=== PATIENT | male | born 1950 | race Caucasian/White ===

== ENCOUNTER 2019-09-02 07:38 | Outpatient (CLI) | payer MEDICARE, OTHER, SELFPAY ==
--- NOTE | ~2019-09-02 | US_ITS ---
EXAMINATION: US aorta DATE: 09/02/2019 08:57 INDICATION: Abdominal aortic aneurysm. TECHNIQUE: Grayscale, color Doppler, and pulsed Doppler images of the aorta and common iliac arteries were obtained. COMPARISON: Chest CT 03/23/2016, CT abdomen 08/09/2008 FINDINGS: The aorta is normal in caliber and demonstrates atherosclerosis. The right common iliac artery is nor mal in caliber. The left common iliac artery measures 2.1 cm. IMPRESSION: 1. No abdominal aortic aneurysm. Reviewed, dictated and finalized at location A. DIRECTOR
== END 2019-09-02 07:39 | disposition home or self-care (01) ==
PROVIDERS: PCP Family Medicine; Visit Provider Internal Medicine Cardiovascular Disease
DX: I71.4 Abdominal aortic aneurysm, without rupture (principal)
CPT/HCPCS: 36415; 76775; 80061; 84450; 84460

== ENCOUNTER 2019-09-02 09:02 | Outpatient (CLI) | payer MEDICARE, OTHER, SELFPAY ==
[2019-09-02 09:45] LABS: Alanine Aminotransferase 22 U/L (4-50); Aspartate Amino Transferase 26 U/L (17-59); Cholesterol 143 mg/dL (0-200); HDL Direct 36 mg/dL; Triglycerides 150 mg/dL (<150)
[2019-09-02 09:56] LABS: LDL Cholesterol Direct 81 mg/dL
== END 2019-09-02 09:03 | disposition home or self-care (01) ==
LOC: ANHLAB 09:07
PROVIDERS: PCP Family Medicine; Visit Provider Internal Medicine Cardiovascular Disease
DX: E78.5 Hyperlipidemia, unspecified (principal)
CPT/HCPCS: 36415; 80061; 84450; 84460

== ENCOUNTER 2020-05-02 07:44 | Outpatient (CLI) | payer MEDICARE, OTHER, SELFPAY ==
--- NOTE | ~2020-05-02 | CT_ITS ---
EXAMINATION: CT abdomen pelvis w con INDICATION: Prostate cancer TECHNIQUE: Computed tomographic images of the abdomen and pelvis were obtained after the administrati on of 100 cc of Omnipaque 350 intravenous contrast. The dose-length product (DLP) was 693.89 mGy-cm. Automated exposure control and iterative reconstruction technique were employed. COMPARISON: 08/09/2008, 03/28/2017 FINDINGS: Stable 4 mm nodules of the lower lobes are consistent with old granulomatous disease. No ne w pulmonary nodules are identified in the visualized lung bases. Cardiomegaly is noted. The liver, sp libra, pancreas, and adrenal glands are normal. Stones are present in the neck of the nondistended gal lbladder. There is a 3 mm nonobstructing stone of the right kidney lower pole. The left kidney is unr emarkable. A moderate volume of colonic stool is present. No pathologically enlarged abdominal or pel eaw lymph nodes are identified. There is no free intraperitoneal gas or evidence of bowel obstruction . There are three stones in the urinary bladder which measure 8 mm, 6 mm, and 7 mm. A 2 mm stone is s een near the left ureterovesicular junction without resulting hydronephrosis, likely within the bladd er wall. There is circumferential thickening of the bladder wall. The prostate is enlarged. There is moderate lumbar spondylosis. IMPRESSION: 1. No evidence of metastatic disease. 2. Stones in the urinary bladder as well as nonobstructing right nephrolithiasis. 3. Stones in the gallbladder neck without evidence of cholecystitis. Reviewed, dictated and finalized at location A. IMPRESSION: 1. No evidence of metastatic disease. 2. Stones in the urinary bladder as well as nonobstructing right nephrolithiasi s. 3. Stones in the gallbladder neck without evidence of cholecystitis.
--- NOTE | ~2020-05-02 | NM_ITS ---
EXAMINATION: NM bone scan whole body EXAM DATE: 05/02/2020 11:14 INDICATION: Prostate cancer. TECHNIQUE: Bone scan was performed after injection of 24.5 mCi technetium 99 HDP and planar whole bod y images were obtained. COMPARISON: Correlation made to CT abdomen pelvis 05/02/2020 FINDINGS: There is mild lumbar dextroscoliosis. Some regions of uptake in the shoulders, clavicular manubrial joints consistent with primary osteoarthritis. There are no focal regions of increased upta ke or photopenic regions suspicious for osseous metastatic disease. Physiologic, expected amount of r enal excretion. Bladder activity has been subtracted. IMPRESSION: No evidence of osseous metastatic disease. Reviewed, dictated and finalized at location B.
[2020-05-02 08:21] LABS: Estimated Glomerular Filt Rate > 60
== END 2020-05-02 07:45 | disposition home or self-care (01) ==
LOC: ANHIMG 07:51
PROVIDERS: PCP Family Medicine; Visit Provider Urology
DX: C61 Malignant neoplasm of prostate (principal)
CPT/HCPCS: 74177; 78306; A9561; Q9967

== ENCOUNTER 2020-06-02 14:28 | Outpatient (CLI) | payer MEDICARE, OTHER, SELFPAY ==
[2020-06-02 15:27] LABS: Basophils Percent Auto 0.6 % (0.2-1.2); Eosinophils Absolute Auto 0.2 K/mm3 (0-0.3); Eosinophils Percent Auto 3.1 % (0-4.4); Hemoglobin 13.7 g/dL (14.0-18.0); Immature Granulocyte Absolute 0.01 K/mm3 (0.00-0.031); Immature Granulocyte Percent A 0.1 % (0-0.5); Lymphocytes Absolute Auto 2.58 K/mm3 (0.9-3.2); Lymphocytes Percent Auto 35.9 % (18.3-44.2); Mean Corpuscular HGB Conc 31.1 g/dl (32-36); Mean Corpuscular Hemoglobin 26.3 pg (26-34); Mean Corpuscular Volume 84.5 fl (80-100); Mean Platelet Volume 10.4 fl (7.4-10.4); Monocytes Absolute Auto 0.6 K/mm3 (0.1-0.6); Monocytes Percent Auto 8.9 % (2.6-8.5); Neutrophils Absolute Auto 3.7 K/mm3 (1.3-6.7); Neutrophils Percent Auto 51.4 % (45.5-73.1); Platelet Count Result 287 k/mm3 (150-375); Red Blood Count 5.21 M/mm3 (4.6-6.20); Red Cell Distribution Width 15.2 % (11.5-14.5); White Blood Count 7.2 K/mm3 (4.5-10.0)
[2020-06-02 15:38] LABS: Alanine Aminotransferase 12 U/L (4-50); Albumin Level 4.2 g/dL (3.5-5.1); Alkaline Phosphatase 75 U/L (38-126); Anion Gap 7 mmol/L (8-16); Aspartate Amino Transferase 23 U/L (17-59); Bilirubin,Total 0.4 mg/dL (0.2-1.3); Blood Urea Nitrogen 18 mg/dL (9-20); Calcium 9.7 mg/dL (8.4-10.2); Carbon Dioxide 34 mmol/L (22-30); Chloride 101 mmol/L (98-107); Estimated Glomerular Filt Rate > 60; Glucose 85 mg/dL (75-110); Sodium 142 mmol/L (137-145)
[2020-06-02 15:40] LABS: Partial Thromboplastin Time 37.6 SECONDS (22.3-36.8); Prothrombin Time 13.7 Seconds (11.1-14.7)
== END 2020-06-02 14:29 | disposition home or self-care (01) ==
LOC: ANHSURGERY 14:32
PROVIDERS: PCP Family Medicine; Visit Provider Urology
DX: Z01.818 Encounter for other preprocedural examination (principal); N21.0 Calculus in bladder
CPT/HCPCS: 36415; 80053; 85025; 85610; 85730; 86850; 86900; 86901; 87086

== ENCOUNTER 2020-06-03 01:20 | Outpatient (CLI) | payer MEDICARE, OTHER, SELFPAY ==
[2020-06-03 18:04] LABS: SARS-CoV-2 RNA PCR Negative
== END 2020-06-03 01:21 | disposition home or self-care (01) ==
LOC: ANHCOVIDDT 01:21
PROVIDERS: PCP Family Medicine; Visit Provider Urology
DX: Z01.812 Encounter for preprocedural laboratory examination (principal); Z11.59 Encounter for screening for other viral diseases
CPT/HCPCS: 87635; C9803; U0003

== ENCOUNTER 2020-06-06 01:53 | Day surgery (SDC) | payer MEDICARE, OTHER, SELFPAY ==
[2020-06-02 13:07] VITALS: BMI 25.7
[2020-06-06] VITALS (8 sets, daily range): BP systolic 131–159; BP diastolic 61–88; PULSE 52–64; RESP 10–20; TEMP 36.2–36.6; O2SAT 94–100
--- NOTE | 2020-06-06 10:25 | WPDHPUPDATE1 ---
History and Physical Update Update Date/Time: 06/06/20 10:25 History and Physical has been reviewed, including an updated exam of the patient. There are NO changes in the patient's condition. Risks, benefits, and alternatives have been discussed and questions answered. Patient agrees to proceed with procedure.
[2020-06-06] MEDS: LACTATED RINGERS 1,000 ML 30 ML IV CONT (11:33)
--- NOTE | 2020-06-06 11:48 | WPDANESEPP ---
Anes - Eval Pre Procedure Procedure: Operation Date: 06/06/20 14:00 Proposed Procedures p Cystoscopy, Bladder Stone Extraction - Ramone Doss MD s Possible Holmium Laser Procedure - Ramone Doss MD Date/Time: 06/06/20 11:48 Pre Op Diagnosis: Bladder Stones Patient Data Age: 69 Gender: M Height: 1.88 m Weight: 90.9 kg Allergies Allergy/AdvReac Type Severity Reaction Status Date / Time No Known Allergies Allergy Unverified 06/02/20 13:05 Home Medications Medication Instructions Recorded Confirmed Type aspirin 81 mg PO DAILY 06/02/20 06/02/20 History metoprolol tartrate 12.5 mg BID 06/02/20 06/02/20 History rosuvastatin [Crestor] 40 mg QAM 06/02/20 06/02/20 History Patient hx anesthesia problems: none Family hx anesthesia problems: none PMFSH Past Medical History Medical History AAA (abdominal aortic aneurysm) Aortic valve insufficiency Arthritis CAD (coronary artery disease) Diabetes H/O ETOH abuse HLD (hyperlipidemia) HTN (hypertension) Myocardial infarct DINA (obstructive sleep apnea) Surgical History Surgical History Hx of CABG Family History Family History Mother Cerebrovascular accident Father Family history of lung cancer Sibling Acute myocardial infarction Other Family history of cardiovascular disease Hypertension Social History Social History Smoking status: Never smoker Alcohol intake: former Alcohol use details: PT STATES STOPPED DRINKING 30+YRS AGO Substance use: never Living arrangements: with family Spiritual care concerns: No Exam Day of Procedure 06/06/20 11:48 Patient weight: overweight Heart: regular rate and rhythm Lungs: normal air movement Airway: Mallampati scale class 1 Neurological: alert and oriented
--- NOTE | 2020-06-06 11:51 | P.PNAN_ITS ---
Anes - Eval Final PreProcedure Day of Procedure 06/06/20 11:51 Patient weight: normal Heart: regular rate and rhythm Lungs: clear to auscultation Airway: Mallampati scale class 1 Neurological: alert and oriented Last oral intake: >/= 8 hours ASA classification: III Emergent: no Anesthetic plan: proceed Anesthesia type and monitoring: general LMA and standard monitoring Informed Consent: The patient's anesthetic plan and its attendant risks and be nefits were discussed with the patient/family/POA. Questions were solicited and answers provided to the satisfaction of the patient/family/POA.
[2020-06-06] MEDS: ceFAZolin 2 GM/D5W 50 ML 2 GM/50 ML BAG IVPB (12:50)
[2020-06-06] MEDS: LIDOCAINE HCL 2% GEL UROJET 10 ML PKG MUCOUS MEM (13:18)
--- NOTE | 2020-06-06 13:19 | P.OP_ITS ---
Procedure Note - Detailed Date of procedure: 06/06/20 Pre-op diagnosis: Bladder Stones Post-op diagnosis: same Procedure performed: Cysto with bladder stone extraction, fulguration of bladder neck. Description of procedure: Patient is taken the operative suite and correctly identified. Once anesthesia was obtained he was placed in the dorsal lithotomy position and prepped and draped in usual sterile fashion. Twenty-two Mongolian scope inserted the bladder. He has an enlarged prostate with an elevated median bar and a small median lobe. He had some mild bulbar urethral narrowing. Upon entering the bladder there is 2+ trabeculation noted. He has 2-3 stones present. We used this cold cup biopsy forceps to remove the edges of the jackstone. We then retrieve them. Patient did have a slight oozing from the prostatic fossa and we fulgurated this using a bag be. 2% viscous lidocaine was inserted urethra and a 16 Mongolian coude was placed. A be discharged home with Ann can have that removed in the next couple of days if his urine is clear. Anesthesia: GLMA Surgeon: Ramone Doss MD Drains: Yes Packing: No Pathology: yes Complications: No immediate complications Condition: stable Disposition: PACU
[2020-06-06] MEDS: oxyCODONE HCL (*CRX) 5 MG TAB IR PO (14:39)
== END 2020-06-06 15:15 | disposition home or self-care (01) ==
PROVIDERS: PCP Family Medicine; Visit Provider Urology
PROC: 0TCB8ZZ Extirpation of Matter from Bladder, Via Natural or Artificial Opening Endoscopic (ICD-10-PCS; CPT 52352; principal; 2020-06-06 14:00)
DX: N21.0 Calculus in bladder (principal); N32.89 Other specified disorders of bladder; C61 Malignant neoplasm of prostate; I25.10 Atherosclerotic heart disease of native coronary artery without angina pectoris; Z95.1 Presence of aortocoronary bypass graft; I10 Essential (primary) hypertension; E78.5 Hyperlipidemia, unspecified; E11.9 Type 2 diabetes mellitus without complications; I25.2 Old myocardial infarction; G47.33 Obstructive sleep apnea (adult) (pediatric); I35.1 Nonrheumatic aortic (valve) insufficiency; I71.4 Abdominal aortic aneurysm, without rupture
CPT/HCPCS: 52310; 82365; 88300; A9270; J0690; J1100; J2405; J2704; J3010; J7120

== ENCOUNTER 2020-06-08 21:44 | Emergency (ER) | payer MEDICARE, OTHER, SELFPAY ==
--- NOTE | ~2020-06-08 | CT_ITS ---
EXAMINATION: CT abdomen pelvis wo con DATE: 06/08/2020 23:31 INDICATION: Lower abdominal pain, flank pain. History of gout TECHNIQUE: Computed tomography (CT) of the abdomen and pelvis was performed without intravenous contr ast. Automated exposure control and iterative reconstruction technique were employed. Exam dose: 840 .36 mGy-cm total exam DLP. COMPARISON: 05/02/[address] abdomen pelvis 04/13/2017 CT Chest FINDINGS: Mild discoid atelectasis or scarring in the lower lobes. Probable small benign minor fissure nodes. Stable 4 mm left lower lobe pulmonary nodule. Stable 4 mm right lower lobe pulmonary nodule. Status post sternotomy/coronary artery bypass graft surgery. Mild cardiomegaly. No pericardial or pleural effusion. There are numerous small dependent gallstones. No gallbladder wall thickening or pericholecystic flu id or fat stranding. No bile duct or pancreatic duct dilatation. No hepatic, splenic, pancreatic, and adrenal or renal space-occupying mass lesion is evident on this limited noncontrast examination. 3 mm lower pole nonobstructing right renal calculus. 3 mm lower pole nonobstructing left renal calculus. There is mild bilateral nonspecific hydroureteronephrosis. There are several very small dependent urinary bladder stones. There is prostate enlargement. There are occasional prostate calcifications. There is atherosclerotic calcification of the abdominal aorta and iliac arteries. No abdominal aortic aneurysm. There are occasional diverticula of the left colon; no CT evidence of diverticulitis. Normal appendix . No bowel obstruction, bowel wall thickening, pneumatosis or intraperitoneal free air. Degenerative changes of the thoracic and lumbar spine including severe degenerative disc disease part icularly at L5-S1. Diffuse osteopenia. IMPRESSION: Mild bilateral nephrolithiasis Urinary bladder stones Cholelithiasis Mild colonic diverticulosis Prostate enlargement, calcification 4 mm nodules in both lower lobes Mild discoid atelectasis or scarring in the lower lobes Reviewed, dictated and finalized at Location A. Reviewed, dictated and finalized at location A. LAINT INVESTIGATOR
[2020-06-08 21:49] VITALS: BP 226/110; PULSE 96; RESP 16; TEMP 37.1; O2SAT 99
--- NOTE | 2020-06-08 22:11 | ED.MALEGU ---
HPI - Male Genitourinary General Chief complaint: Abdominal Pain Stated complaint: abd pain Time Seen by Provider: 06/08/20 21:56 Source: patient Mode of arrival: ambulatory Limitations: no limitations History of Present Illness HPI Narrative: Patient is a 69-year-old male complaining of abdominal pain described as aching, cramping accompanied by increased urinary frequency. Patient states that he recently had a prostate procedure done today and and his Ann removed. Patient states that he is able to urinate but increasing frequency every 10 minutes . He denies any blood in his urine. He denies any nausea vomiting diarrhea or fever. Related Data Home Medications Medication Instructions Recorded Confirmed metoprolol tartrate 12.5 mg BID 06/02/20 06/06/20 rosuvastatin [Crestor] 40 mg QAM 06/02/20 06/06/20 Allergies Allergy/AdvReac Type Severity Reaction Status Date / Time No Known Allergies Allergy Unverified 06/06/20 12:03 Review of Systems Review of Systems: All systems reviewed & are unremarkable except as noted in HPI and below Constitutional: Constitutional: Denies body ache(s), Denies chills, Denies excessive sweating, Denies fatigue, Denies fever(s), Denies headache(s), Denies lethargy, Denies malaise, Denies weakness and Denies weight loss Eyes: Eyes: Denies blurry vision, Denies change in vision and Denies loss of vision ENT: Denies dizziness, Denies ear discharge, Denies headache(s), Denies lip swelling, Denies epistaxis, Denies nasal congestion, Denies neck pain, Denies throat swelling and Denies tongue swelling Cardiovascular: Cardiovascular: Denies chest pain, Denies chest pain at rest, Denies chest pain with activity, Denies diaphoresis, Denies rapid heart rate, Denies edema, Denies irregular heart rhythm, Denies lightheadedness, Denies palpitations, Denies dyspnea and Denies dyspnea on exertion Respiratory: Respiratory: Denies chest congestion, Denies cough, Denies hemoptysis, Denies dyspnea and Denies dyspnea on exertion Gastrointestinal: Gastrointestinal: Denies abdominal pain, Denies melena, Denies hematochezia, Denies diarrhea, Denies nausea, Denies vomiting and Denies hematemesis Musculoskeletal: Musculoskeletal: Denies abnormal gait, Denies deformity, Denies joint swelling, Denies limited range of motion, Denies neck pain and Denies numbness Neurologic: Denies Abnormal speech present, Denies abnormal gait, Denies confusion, Denies dizziness, Denies headache(s), Denies focal weakness, Denies loss of vision, Denies numbness, Denies Other visual disturbances, Denies Sensory deficit (Neuro) and Denies weakness Psychiatric: Psychiatric: Denies confusion, Denies depression, Denies auditory hallucinations, Denies homicidal ideation and Denies suicidal ideation Endocrine: Endocrine: Denies cold intolerance, Denies excessive sweating, Denies fatigue, Denies heat intolerance and Denies palpitations Hematologic/Lymphatic: Hematologic/Lymphatic: Denies easy bleeding and Denies easy bruising Allergic/Immunologic: Allergic/Immunologic: Denies lip swelling, Denies throat swelling and Denies tongue swelling PMFSH Past Medical History Medical History AAA (abdominal aortic aneurysm) Aortic valve insufficiency Arthritis CAD (coronary artery disease) Diabetes H/O ETOH abuse HLD (hyperlipidemia) HTN (hypertension) Myocardial infarct DINA (obstructive sleep apnea) Surgical History Surgical History Hx of CABG Family History Family History Mother Cerebrovascular accident Father Family history of lung cancer Sibling Acute myocardial infarction Other Family history of cardiovascular disease Hypertension Social History Social History Smoking status: Never smoker Alcohol intake: for
[2020-06-08 22:24] LABS: Basophils Absolute Auto 0.1 K/mm3 (0.0-0.1); Basophils Percent Auto 0.6 % (0.2-1.2); Eosinophils Absolute Auto 0.3 K/mm3 (0-0.3); Eosinophils Percent Auto 2.5 % (0-4.4); Hematocrit 46.1 % (42.0-52.0); Hemoglobin 14.8 g/dL (14.0-18.0); Immature Granulocyte Absolute 0.02 K/mm3 (0.00-0.031); Immature Granulocyte Percent A 0.2 % (0-0.5); Lymphocytes Absolute Auto 2.55 K/mm3 (0.9-3.2); Lymphocytes Percent Auto 22.2 % (18.3-44.2); Mean Corpuscular HGB Conc 32.1 g/dl (32-36); Mean Corpuscular Hemoglobin 27.3 pg (26-34); Mean Corpuscular Volume 85.1 fl (80-100); Mean Platelet Volume 10.4 fl (7.4-10.4); Monocytes Absolute Auto 0.8 K/mm3 (0.1-0.6); Neutrophils Absolute Auto 7.8 K/mm3 (1.3-6.7); Neutrophils Percent Auto 67.5 % (45.5-73.1); Platelet Count Result 302 k/mm3 (150-375); Red Blood Count 5.42 M/mm3 (4.6-6.20); Red Cell Distribution Width 15.3 % (11.5-14.5); White Blood Count 11.5 K/mm3 (4.5-10.0)
[2020-06-08 22:34] LABS: Prothrombin Time 13.4 Seconds (11.1-14.7)
[2020-06-08 22:35] LABS: Partial Thromboplastin Time 34.3 SECONDS (22.3-36.8)
[2020-06-08 22:36] LABS: Lactic Acid Reflex 1.7 mmol/L (0.7-2.1)
[2020-06-08 22:37] LABS: Alanine Aminotransferase 13 U/L (4-50); Albumin Level 4.4 g/dL (3.5-5.1); Alkaline Phosphatase 87 U/L (38-126); Anion Gap 7 mmol/L (8-16); Aspartate Amino Transferase 26 U/L (17-59); Bilirubin,Total 0.4 mg/dL (0.2-1.3); Blood Urea Nitrogen 21 mg/dL (9-20); Calcium 10.1 mg/dL (8.4-10.2); Carbon Dioxide 30 mmol/L (22-30); Chloride 103 mmol/L (98-107); Estimated CRCL calculation 78 ml/min; Estimated Glomerular Filt Rate > 60; Glucose 130 mg/dL (75-110); Potassium 4.2 mmol/L (3.4-5.0); Sodium 140 mmol/L (137-145)
[2020-06-08] MEDS: SODIUM CHLORIDE 0.9% IV 1,000 ML 999 ML IV CONT (22:54)
[2020-06-08] MEDS: ONDANSETRON INJ 4 MG/2 ML VIAL IV PUSH (23:36)
[2020-06-08] MEDS: HYDROmorphone HCL INJ (*CRX) 1 MG/ML SYR 0.5 MG IV PUSH (23:37)
[2020-06-09 01:23] LABS: Add Urine Microscopic? YES; Appearance Urine Cloudy (Clear); Bilirubin Urine Negative (Negative); Blood Urine 3+ (Negative); Color Urine Yellow (Yellow); Glucose Urine UA Negative (Negative); Ketones Urine Negative (Negative); Leukocyte Esterase Ur Trace LEU/UL (Negative); Mucus Urine Rare /lpf; Nitrate Urine Negative (Negative); Protein Urine 1+ mg/dL (Negative); RBC Urine >75 /hpf (0-2); Specific Grav Ur 1.013 (1.001-1.035); Urobilinogen Urine Negative mg/dL (<2.0)
[2020-06-09 03:06] VITALS: BP 184/94; PULSE 81; RESP 18; O2SAT 98
== END 2020-06-09 03:09 | disposition home or self-care (01) ==
PROVIDERS: Emergency Provider Emergency Medicine; PCP Family Medicine
DX: N30.01 Acute cystitis with hematuria (principal); N20.0 Calculus of kidney; R33.8 Other retention of urine; M19.90 Unspecified osteoarthritis, unspecified site; I35.1 Nonrheumatic aortic (valve) insufficiency; I25.10 Atherosclerotic heart disease of native coronary artery without angina pectoris; E11.9 Type 2 diabetes mellitus without complications; E78.5 Hyperlipidemia, unspecified; I10 Essential (primary) hypertension; I25.2 Old myocardial infarction; G47.33 Obstructive sleep apnea (adult) (pediatric); Z95.1 Presence of aortocoronary bypass graft; K80.20 Calculus of gallbladder without cholecystitis without obstruction; K57.90 Diverticulosis of intestine, part unspecified, without perforation or abscess without bleeding; R91.8 Other nonspecific abnormal finding of lung field; N40.1 Benign prostatic hyperplasia with lower urinary tract symptoms
CPT/HCPCS: 36415; 51702; 74176; 80053; 81001; 83605; 85025; 85610; 85730; 87086; 96361; 96365; 96375; 99284; J0696; J1170; J2405; J7030

== ENCOUNTER 2020-06-12 02:31 | Outpatient (CLI) | payer MEDICARE, OTHER, SELFPAY ==
[2020-06-12 21:22] LABS: SARS-CoV-2 RNA PCR Negative
== END 2020-06-12 02:32 | disposition home or self-care (01) ==
LOC: ANHCOVIDDT 02:32
PROVIDERS: PCP Family Medicine; Visit Provider Urology
DX: Z01.812 Encounter for preprocedural laboratory examination (principal); Z20.828 Contact with and (suspected) exposure to other viral communicable diseases
CPT/HCPCS: 87635; C9803; U0003

== ENCOUNTER 2020-06-15 01:37 | Day surgery (SDC) | payer MEDICARE, OTHER, SELFPAY ==
[2020-06-02 13:59] VITALS: BMI 25.7
--- NOTE | 2020-06-14 14:15 | WPDANESEPPF ---
Anes - Initial Pre Proc Eval Procedure: Operation Date: 06/15/20 07:30 Proposed Procedures p Robotic Assisted Nerve Sparing Prostatectomy, Possible Pelvic Lymph Node Dissection - Ramone Doss MD Date/Time: 06/14/20 14:15 Surgeon: Ramone Doss MD Pre Op Diagnosis: Prostate Ca Patient Data Age: 69 Gender: M Height: 1.88 m Weight: 90.9 kg Allergies Allergy/AdvReac Type Severity Reaction Status Date / Time No Known Allergies Allergy Verified 06/15/20 06:16 Home Medications Medication Instructions Recorded Confirmed Type metoprolol tartrate 12.5 mg BID 06/02/20 06/15/20 History rosuvastatin [Crestor] 40 mg QAM 06/02/20 06/15/20 History Patient hx anesthesia problems: none Family hx anesthesia problems: none PMFSH Past Medical History Medical History (Updated 06/15/20 @ 06:55 by Gustabo Fonseca DO) Aortic valve insufficiency mild Arthritis CAD (coronary artery disease) H/O ETOH abuse 30 years ago HLD (hyperlipidemia) HTN (hypertension) Myocardial infarct DINA (obstructive sleep apnea) possible - not officially diagnosed Surgical History Surgical History (Updated 06/15/20 @ 06:51 by Gustabo Fonseca DO) Hx of CABG 2018 x 3 Family History Family History Mother Cerebrovascular accident Father Family history of lung cancer Sibling Acute myocardial infarction Other Family history of cardiovascular disease Hypertension Social History Social History Smoking status: Never smoker Alcohol intake: former Alcohol use details: STATES STOPPED DRINKING 30+ YRS AGO Substance use: never Living arrangements: with family Spiritual care concerns: No Anes - Eval Final PreProcedure Day of Procedure 06/14/20 14:15 Patient weight: overweight Heart: regular rate and rhythm Lungs: clear to auscultation and normal air movement Airway: Mallampati scale class 1 Neurological: alert and oriented Last oral intake: >/= 8 hours ASA classification: III Emergent: no Anesthetic plan: proceed Anesthesia type and monitoring: general ETT and standard monitoring Informed Consent: The patient's anesthetic plan and its attendant risks and benefits were discussed with the patient/family/POA. Questions were solicited and answers provided to the satisfaction of the patient/family/POA.
[2020-06-15] VITALS (12 sets, daily range): BP systolic 130–161; BP diastolic 63–78; PULSE 68–85; RESP 8–21; TEMP 35.7–36.5; O2SAT 92–100; BMI 26.2
[2020-06-15] MEDS: LACTATED RINGERS 1,000 ML 30 ML IV CONT ×2 (06:31→13:55)
--- NOTE | 2020-06-15 06:53 | PM.IMHP ---
H&P: HPI History of Present Illness Date/Time: 06/15/20 06:53 Chief complaint: Prostate Ca Narrative: Ryan Hamm is a 69 year old male with adenocarcinoma of prostate. Presents for robotic assist nerve sparing prostatectomy with possible plnd Review of Systems Review of Systems: All systems reviewed & are unremarkable except as noted in HPI and below PMFSH Past Medical History Medical History AAA (abdominal aortic aneurysm) not seen on 08/2019 ultrasound Aortic valve insufficiency mild Arthritis CAD (coronary artery disease) Diabetes H/O ETOH abuse HLD (hyperlipidemia) HTN (hypertension) Myocardial infarct DINA (obstructive sleep apnea) Surgical History Surgical History Hx of CABG 2018 x 3 Family History Family History Mother Cerebrovascular accident Father Family history of lung cancer Sibling Acute myocardial infarction Other Family history of cardiovascular disease Hypertension Social History Social History Smoking status: Never smoker Alcohol intake: former Alcohol use details: STATES STOPPED DRINKING 30+ YRS AGO Substance use: never Living arrangements: with family Spiritual care concerns: No Meds Home Medications and Allergies Home Medications Medication Instructions Recorded Confirmed Type metoprolol tartrate 12.5 mg BID 06/02/20 06/15/20 History rosuvastatin [Crestor] 40 mg QAM 06/02/20 06/15/20 History Allergies Allergy/AdvReac Type Severity Reaction Status Date / Time No Known Allergies Allergy Verified 06/15/20 06:16 Exam Const: General: cooperative, comfortable and no acute distress HENMT: Head: normal to inspection Ears: hearing grossly normal bilaterally Eyes: General: appearance normal, both eyes and all related structures Neck: Neck: normal visual inspection Chest: Chest palpation & inspection: normal inspection of the chest Resp: Effort & Inspection: normal respiratory effort GI: Inspection: normal to inspection and non-distended Back/Spine/Pelvis: Back: no CVA tenderness Skin: General skin exam: normal color Neuro: General: oriented to person, oriented to place, oriented to time and patient oriented x3 Extrem: General: normal to inspection Psych: Appearance: grossly normal Assessment and Plan Assessment and plan (1) Adenocarcinoma of prostate: Code(s): C61 - Malignant neoplasm of prostate Status: Acute Additional Plan robotic assist nerve sparing prostatectomy with possible bilateral plnd
--- NOTE | 2020-06-15 07:30 | WPDHPUPDATE1 ---
History and Physical Update Update Date/Time: 06/15/20 07:30 History and Physical has been reviewed, including an updated exam of the patient. There are NO changes in the patient's condition. Risks, benefits, and alternatives have been discussed and questions answered. Patient agrees to proceed with procedure.
[2020-06-15] MEDS: ceFAZolin 2 GM/D5W 50 ML 2 GM/50 ML BAG IVPB (07:48)
[2020-06-15] MEDS: BUPIVACAINE HCL 0.5% PF 30 ML VIAL INFILTRATE (09:02)
[2020-06-15] MEDS: ceFAZolin SODIUM 1 GM VIAL IV PUSH (12:00)
--- NOTE | 2020-06-15 13:40 | PM.PROC ---
Procedure Note - Detailed Date of procedure: 06/15/20 Pre-op diagnosis: Prostate Ca Post-op diagnosis: same Procedure performed: Robotic assisted nerve-sparing prostatectomy with right pelvic lymph node dissection Description of procedure: Patient is taken to the operative suite and correctly identified. Once anesthesia was obtained was placed in low lying dorsal lithotomy position and prepped and draped in usual sterile fashion. Supraumbilical incision was then made and carried down to the rectus fascia. Veress needle was inserted in the abdomen was insufflated to 15 mmHg pressure. An 18 Stateless Ann had been placed with 20 cc in the balloon. Working ports were then placed by 1st placing the camera port under direct vision. The other working ports were then placed. The patient was placed in steep Trendelenburg position and the robot was docked. It was noted that he had quite a bit of adhesions from prior hernia repairs. We went ahead and dissected off the adhesions from the left bowel to the hernia repair on the left. We then went ahead and did a posterior approach. The seminal vesicles were somewhat scarred in and hard in nature. The vas is were transected. We were able to develop a plane between the prostate and the rectum. We then took down the bladder in the standard fashion. Again he had prior hernia surgeries which did have some adhesions of the bladder to the sidewall. Endopelvic fascia was incised and extended proximally distally. Puboprostatic ligaments were taken down. Dorsal venous complex was isolated using 0 Vicryl secured. Patient has an extremely large prostate. We open the anterior neck. It was noted the patient had actually 2 lobes protruding into the bladder. In order to excise this in its entirety the bladder neck was somewhat larger than we had hoped for. The posterior bladder neck was transected. We were able to find the space where the seminal vesicles were dissected out. Pedicles were taken using clips. Nerves were lifted off the prostate. Dorsal venous complex was transected as was the urethra. Prostate was placed in an Endo-Catch bag. Was extremely large and could barely fit in it. We then did a right pelvic lymph node dissection with the borders being the external iliac vein groups ligament, obturator nerve, and bifurcation of vessels. Clips were placed proximally and distally on the lymph node packet. We then did a bladder neck reconstruction by placing 2 0 Vicryl laterally. We then anastomosed the bladder neck to the urethra using V lock suture in a running anastomosis. There was good approximation mucosa. Eighteen Stateless Ann was placed inflated with 10 cc sterile water. The bladder was filled with 200 cc of normal saline. There is no evidence of extravasation. A lap count needle counts and sponge counts were correct. We then undocked the robot. A Ezio drain had been placed through the 3rd working arm port site. This was secured using nylon. Midline incision was extended. The bag was brought out through this incision. We then closed using 0 Vicryl in a running fashion. Subcuticular stitches were then placed. We anesthetized the port sites using 1% lidocaine. Patient tolerated procedure well without complications taken recovery room stable condition. Anesthesia: GETA Surgeon: Ramone Doss MD Estimated blood loss (mL): 100 Drains: Yes Packing: No Pathology: yes Complications: No immediate complications Condition: stable Disposition: PACU
--- NOTE | 2020-06-15 15:35 | PC.NURSE ---
This patient, Ryan Hamm, was admitted to 2 Medical Room 260-. Patient/family oriented to hospital policies and general routines including ID bracelet, bed and alarms, visiting hours, pain management, procedures, bathroom and other care routines, personal items, smoking policy, room service/diet, and visiting hours. Information on how to activate the Rapid Response Team has been discussed. Patient/Family are encouraged to report perceived risks to care and to ask questions if they do not understand what they are told or what they should do.
[2020-06-15] MEDS: LACTATED RINGERS 1,000 ML 125 ML IV CONT (15:51)
[2020-06-15] MEDS: HYDROcodone/acetaminophen (*CRX) 5-325 MG TABLET 1 TAB PO (19:38)
[2020-06-16] VITALS: BP 127/67; PULSE 83; RESP 18; TEMP 36.2; O2SAT 96
[2020-06-16] MEDS: LACTATED RINGERS 1,000 ML 125 ML IV CONT ×2 (00:46→08:24)
[2020-06-16] MEDS: HYDROcodone/acetaminophen (*CRX) 5-325 MG TABLET 1 TAB PO (02:08)
[2020-06-16] MEDS: HYOSCYAMINE SULFATE 0.125 MG TABLET SUBLINGUAL (02:08)
[2020-06-16 05:03] VITALS: BP 125/72; PULSE 84; RESP 20; TEMP 36.3; O2SAT 98
[2020-06-16 05:26] LABS: Hematocrit 37.1 % (42.0-52.0); Hemoglobin 12.1 g/dL (14.0-18.0)
[2020-06-16 05:41] LABS: Anion Gap 3 mmol/L (8-16); Blood Urea Nitrogen 16 mg/dL (9-20); Carbon Dioxide 33 mmol/L (22-30); Chloride 98 mmol/L (98-107); Estimated CRCL calculation 71 ml/min; Estimated Glomerular Filt Rate > 60; Glucose 110 mg/dL (75-110); Potassium 4.5 mmol/L (3.4-5.0); Sodium 134 mmol/L (137-145)
--- NOTE | 2020-06-16 07:42 | WPDUROPN2 ---
Progress Note: A&P Assessment and Plan (1) Adenocarcinoma of prostate: Code(s): C61 - Malignant neoplasm of prostate Status: Acute Additional Plan Increase activity this morning. Will monitor MAY output this morning and if minimal will removed prior to discharge. Possible discharge later today with catheter cystogram in a week's time. Subjective Subjective Date/Time Seen: 06/16/20 07:42 Post Op day: 1 (Robotic assisted nerve-sparing prostatectomy with right pelvic lymph node dissection, adhesiolysis adhesions) Principal diagnosis: Adenocarcinoma prostate Interval history: Doing well overall postoperative day 1. Sitting up in a chair comfortably at this time. Had some typical discomfort last night. Ann is draining clear urine this time. Review of Systems Review of Systems: All systems reviewed & are unremarkable except as noted in HPI and below Exam Const: General: cooperative, comfortable and no acute distress Resp: Effort & Inspection: normal respiratory effort Cardio: Rate: regular rate GI: GI Palp: Yes Soft to palpation Urinary Catheter: Urinary Catheter: patent and draining and urine clear Objective Data Vital Signs Vital Signs: Vital Signs - 24 hr 06/15/20 13:55 06/15/20 14:10 06/15/20 14:25 Temperature 36.4 C Pulse Rate 83 85 71 Respiratory Rate 8 L 15 15 Blood Pressure 131/63 139/74 155/71 H Pulse Oximetry 98 94 100 06/15/20 14:40 06/15/20 14:55 06/15/20 15:10 Temperature Pulse Rate 79 77 68 Respiratory Rate 18 21 H 16 Blood Pressure 161/78 H 148/76 H 152/70 H Pulse Oximetry 100 92 92 06/15/20 15:35 06/15/20 15:50 06/15/20 16:20 Temperature 35.8 C L 35.7 C L 35.8 C L Pulse Rate 72 71 70 Respiratory Rate 14 16 16 Blood Pressure 140/66 140/66 145/71 H Pulse Oximetry 93 93 95 06/15/20 17:20 06/15/20 20:00 06/16/20 00:00 Temperature 35.8 C L 36.5 C 36.2 C L Pulse Rate 81 78 83 Respiratory Rate 16 20 18 Blood Pressure 130/78 144/69 H 127/67 Pulse Oximetry 99 98 96 06/16/20 05:03 Temperature 36.3 C L Pulse Rate 84 Respiratory Rate 20 Blood Pressure 125/72 Pulse Oximetry 98 Intake/Output Intake/Output: Intake & Output 06/13/20 06/14/20 06/15/20 06/16/20 23:59 23:59 23:59 23:59 Intake Total 1220 450 Output Total 605 950 Balance 615 -500 Meds/Results Medications: Active Medications Generic Name Dose Route Start Last Admin Trade Name Freq PRN Reason Stop Dose Admin Hydrocodone Bitart/Acetaminophen 1 tab 06/15/20 15:18 06/16/20 02:08 Hydrocodone/Acetaminophen (*Crx) 5-325 Mg Tablet PO 1 tab Q6H PRN Administration Pain Rated 1-3 Hydrocodone Bitart/Acetaminophen 2 tab 06/15/20 15:18 Hydrocodone/Acetaminophen (*Crx) 5-325 Mg Tablet PO Q6H PRN Pain Rated 4-6 Hyoscyamine 0.125 mg 06/15/20 15:18 06/16/20 02:08 Hyoscyamine Sulfate 0.125 Mg Tablet SUBLINGUAL 0.125 mg Q4H PRN Administration Bladder Spasm Lactated Ringer's 1,000 mls @ 125 mls/hr 06/15/20 15:18 06/16/20 00:46 Lr - Lactated Ringers Iv IV CONT 125 mls/hr .Q8H LOCO Administration Ketorolac Tromethamine 15 mg 06/15/20 15:18 Ketorolac 15 Mg/Ml Vial (*Bkc) IV PUSH 06/16/20 15:19 Q6H PRN Pain Rated 4-6 Levofloxacin 500 mg 06/16/20 09:00 Levofloxacin Tab 500 Mg Tablet PO DAILY LOCO Morphine Sulfate 1 mg 06/15/20 15:18 Morphine Sulfate (*Crx) 2 Mg/Ml Inj IV PUSH Q2H PRN Pain Rated 7-10 Naloxone HCl 0.1 mg 06/15/20 15:18 Naloxone Hcl 0.4 Mg/Ml Vial IV PUSH Q2M PRN Opiate Reversal Ondansetron HCl 4 mg 06/15/20 15:18 Ondansetron Inj 4 Mg/2 Ml Vial IV PUSH Q6H PRN Nausea And Vomiting Labs Labs: Laboratory Results - last 24 hr 06/16/20 06/16/20 05:10 05:10 Hgb 12.1 L Hct 37.1 L Sodium 134 L Potassium 4.5 Chloride 98 Carbon Dioxide 33 H Anion Gap 3 L BUN 16 Creatinine 1.00 Estim Creat Clear Calc 71 Estimated GFR >
[2020-06-16] MEDS: KETOROLAC 15 MG/ML VIAL (*BKC) IV PUSH (08:25)
== END 2020-06-16 14:52 | disposition home or self-care (01) ==
LOC: ANHSURGERY 05:55 → ANH2MED 15:33
PROVIDERS: PCP Family Medicine; Visit Provider Urology
PROC: 0VT04ZZ Resection of Prostate, Percutaneous Endoscopic Approach (ICD-10-PCS; CPT 55867; principal; 2020-06-15 07:30)
DX: C61 Malignant neoplasm of prostate (principal); I35.1 Nonrheumatic aortic (valve) insufficiency; I25.10 Atherosclerotic heart disease of native coronary artery without angina pectoris; I10 Essential (primary) hypertension; E78.5 Hyperlipidemia, unspecified; I25.2 Old myocardial infarction; Z95.1 Presence of aortocoronary bypass graft
CPT/HCPCS: 55866; 38571; S2900; 36415; 80048; 85014; 85018; 85730; 88307; 88309; A9270; J0330; J0690; J1100; J1170; J1885; J2250; J2405; J2704; J2710; J3010; J7030; J7120

== ENCOUNTER 2020-06-21 09:01 | Outpatient (CLI) | payer MEDICARE, OTHER, SELFPAY ==
--- NOTE | ~2020-06-21 | XR_ITS ---
EXAMINATION: CYSTOGRAM DATE: 06/21/2020 09:47 INDICATION: Prostate cancer follow-up TECHNIQUE: Initial fitness club manager radiograph of the pelvis was performed. There was retrograde administration of Omnipaque 350 mixed with saline contrast into patient's existing engle catheter. Fluoroscopic linda ges of the pelvis were obtained. A post-void image was also performed. Fluoroscopy time is 0.8 minute s. A fluoroscopic images. FINDINGS: There is normal filling of the bladder. The bladder wall is mildly trabeculated. No evidenc e for bladder extravasation or reflux. IMPRESSION: 1. Trabeculated bladder without evidence for bladder leak or reflux. Reviewed, dictated and finalized at location A. MARKETING COORDINATOR
== END 2020-06-21 09:02 | disposition home or self-care (01) ==
PROVIDERS: PCP Family Medicine; Visit Provider Urology
DX: C61 Malignant neoplasm of prostate (principal)
CPT/HCPCS: 51600; 74430; Q9967

== ENCOUNTER 2020-08-21 12:40 | Outpatient (CLI) | payer MEDICARE, OTHER, SELFPAY ==
--- NOTE | ~2020-08-21 | US_ITS ---
EXAMINATION: US carotid duplex BI DATE: 08/21/2020 13:17 INDICATION: Bilateral carotid stenosis. TECHNIQUE: Grayscale, color Doppler, and pulsed Doppler images of the cervical carotid arteries were obtained. The degree of vessel stenosis is placed in one of the following categories: normal, <50%, 5 0-69%, >=70% but less than near-occlusion, near-occlusion, or total occlusion. Note that percent sten osis relative to normal distal artery lumen diameter is indirectly measured from velocity measurement s as described by Vinnie, et al. Radiology 2003; 229:340-346. COMPARISON: None. FINDINGS: RIGHT: The right common carotid artery (CCA) peak systolic velocity (PSV) is 86 cm/s. The right internal car otid artery (ICA) PSV is 58 cm/s. The right ICA end-diastolic velocity (EDV) is 16 cm/s. The right IC A/CCA PSV ratio is 0.7. Grayscale and color Doppler images yield an estimate of <50% diameter reducti on from plaque in the ICA. There is antegrade flow in the right vertebral artery. LEFT: The left CCA PSV is 81 cm/s. The left ICA PSV is 84 cm/s. The left ICA EDV is 21 cm/s. The left ICA/C CA PSV ratio is 1.0. Grayscale and color Doppler images yield an estimate of <50% diameter reduction from plaque in the ICA. There is antegrade flow in the left vertebral artery. IMPRESSION: 1. <50% stenosis in the right internal carotid artery. 2. <50% stenosis in the left internal carotid artery. Reviewed, dictated and finalized at location A. OR INTERNAL AUDITOR
== END 2020-08-21 12:41 | disposition home or self-care (01) ==
PROVIDERS: PCP Family Medicine; Visit Provider Internal Medicine Cardiovascular Disease
DX: I65.23 Occlusion and stenosis of bilateral carotid arteries (principal)
CPT/HCPCS: 93880

== ENCOUNTER 2021-01-11 10:22 | Outpatient (CLI) | payer MEDICARE, OTHER, SELFPAY ==
[2021-01-11 10:53] LABS: Alanine Aminotransferase 12 U/L (4-50); Aspartate Amino Transferase 28 U/L (17-59); Cholesterol 134 mg/dL (0-200); HDL Direct 36 mg/dL; Triglycerides 125 mg/dL (<150)
[2021-01-11 11:05] LABS: LDL Cholesterol Direct 64 mg/dL
== END 2021-01-11 10:23 | disposition home or self-care (01) ==
LOC: ANHLAB 10:27
PROVIDERS: PCP Family Medicine; Visit Provider Internal Medicine Cardiovascular Disease
DX: E78.5 Hyperlipidemia, unspecified (principal)
CPT/HCPCS: 36415; 80061; 84450; 84460

== ENCOUNTER → 2021-05-30 02:45 | Outpatient (CLI) | payer MEDICARE, OTHER, SELFPAY ==
[2021-05-30 17:30] LABS: SARS-CoV-2 RNA PCR Positive
== END ==
PROVIDERS: PCP Family Medicine; Visit Provider Family Medicine
DX: U07.1 COVID-19 (principal); R05.9 Cough, unspecified
CPT/HCPCS: C9803; U0003; U0005

== ENCOUNTER 2022-02-01 13:05 | Outpatient (CLI) | payer MEDICARE, OTHER, SELFPAY ==
--- NOTE | ~2022-02-01 | MR_ITS ---
EXAMINATION: MR pelvis wo/w con DATE: 02/01/2022 14:12 INDICATION: Neoplasm of the prostate TECHNIQUE: Magnetic resonance imaging (MRI) of the pelvis was performed without and with 20 mL Multih ance intravenous contrast. Full-field sequences of the pelvis included axial and coronal T2-weighted SS FSE, axial, sagittal and coronal 2D FIESTA, axial 2D FIESTA FS, axial SSFSE-IR GERI, axial dual-ech o T1-weighted FSPGR, axial and coronal T1 weighted LAVA, 3D axial T2 Cube, axial diffusion-weighted S E with apparent diffusion coefficient (ADC) maps. Postcontrast sequences included a time course axial T1-weighted LAVA and sagittal and coronal T1-weighted LAVA. COMPARISON: CT dated 06/08/2020 FINDINGS: Postoperative change of prior prostatectomy with likely postoperative. Susceptibility artifact at the caudal aspect of the resection bed. Additional susceptibility artifact associated with a small surgi federica clips in the soft tissues about the base of the scrotum and base of the penis as seen on prior CT on subsequent cystogram dated 06/21/2020. No evident abnormal nodular soft tissue in the region of t he resection bed to suggest local recurrence. Subtle trabeculated mucosal surface to the bladder like ly related to prior chronic outlet obstruction from the previously enlarged prostate. No pathological ly enlarged pelvic or inguinal lymphadenopathy. Wad with likely changes of prior bilateral inguinal h ernia repairs. Visualized course of the bowels are unremarkable. Moderate bilateral hip osteoarthriti s. Moderate to severe lower lumbar spondylosis. Normal bone marrow signal with no lesions suspicious for metastatic disease or other pathologic marrow replacing process. Enhancement overlying the bilate ral greater trochanters consistent with trochanteric bursitis. No other abnormally enhancing lesions identified. IMPRESSION: 1. Status post prostatectomy. No evident local recurrence or metastatic disease in the pelvis. 2. Postoperative change of likely bilateral inguinal hernia repairs as well as surgical clips in the region of the base of the scrotum and penis likely related to vasectomy. Correlate with surgical hist ory. Reviewed, dictated and finalized at location A. IMPRESSION: 1. Status post prostatectomy. No evident local recurrence or metastatic disease in the pelvis. 2. Postoperative change of likely bilateral inguinal hernia repairs as well as surgical clips in the region of the base of the scrotum and penis likely relate d to vasectomy. Correlate with surgical history.
[2022-02-01 13:37] LABS: Estimated Glomerular Filt Rate 60
== END 2022-02-01 13:06 | disposition home or self-care (01) ==
PROVIDERS: PCP Family Medicine; Visit Provider Radiology Radiation Oncology
DX: C61 Malignant neoplasm of prostate (principal); Z90.79 Acquired absence of other genital organ(s); Z98.890 Other specified postprocedural states
CPT/HCPCS: 72197; A9577

== ENCOUNTER 2022-04-15 00:09 | Day surgery (SDC) | payer MEDICARE, OTHER, SELFPAY ==
[2022-04-12 15:07] VITALS: BMI 28.3
[2022-04-15] VITALS (9 sets, daily range): BP systolic 132–163; BP diastolic 71–88; PULSE 47–65; RESP 10–21; TEMP 36.5; O2SAT 94–98; BMI 28.4
[2022-04-15 07:31] LABS: Basophils Absolute Auto 0.1 K/mm3 (0.0-0.1); Basophils Percent Auto 0.8 % (0.2-1.2); Eosinophils Absolute Auto 0.4 K/mm3 (0-0.3); Eosinophils Percent Auto 5.5 % (0-4.4); Hematocrit 47.3 % (42.0-52.0); Hemoglobin 15.7 g/dL (14.0-18.0); Immature Granulocyte Absolute 0.01 K/mm3 (0.00-0.031); Immature Granulocyte Percent A 0.1 % (0-0.5); Lymphocytes Absolute Auto 2.59 K/mm3 (0.9-3.2); Lymphocytes Percent Auto 36.6 % (18.3-44.2); Mean Corpuscular HGB Conc 33.2 g/dl (32-36); Mean Corpuscular Hemoglobin 30.8 pg (26-34); Mean Corpuscular Volume 92.9 fl (80-100); Mean Platelet Volume 10.6 fl (7.4-10.4); Monocytes Absolute Auto 0.6 K/mm3 (0.1-0.6); Monocytes Percent Auto 8.3 % (2.6-8.5); Neutrophils Absolute Auto 3.4 K/mm3 (1.3-6.7); Neutrophils Percent Auto 48.7 % (45.5-73.1); Platelet Count Result 188 k/mm3 (150-375); Red Blood Count 5.09 M/mm3 (4.6-6.20); Red Cell Distribution Width 12.4 % (11.5-14.5); White Blood Count 7.1 K/mm3 (4.5-10.0)
[2022-04-15 07:44] LABS: Anion Gap 14 mmol/L (8-16); Blood Urea Nitrogen 20 mg/dL (9-20); Calcium 9.3 mg/dL (8.4-10.2); Carbon Dioxide 28 mmol/L (22-30); Chloride 102 mmol/L (98-107); Estimated CRCL calculation 63 ml/min; Estimated Glomerular Filt Rate > 60; Glucose 89 mg/dL (65-110); INR 1.1; Potassium 4.4 mmol/L (3.4-5.0); Prothrombin Time 13.4 Seconds (11.1-14.7); Sodium 144 mmol/L (137-145)
--- NOTE | 2022-04-15 08:39 | WPDMODSED ---
Moderate Sedation Note-Pt Data Patient Data Diagnosis: Coronary artery disease with previous CABG ascending aortic aneurysm aortic regurgitation Present Complaint: no complaints Procedure to be performed/Plan: left heart catheterization with coronary, graft, aortic root injection Allergies Allergy/AdvReac Type Severity Reaction Status Date / Time No Known Allergies Allergy Verified 04/15/22 07:15 Home Medications Medication Instructions Recorded Confirmed Type metoprolol tartrate 25 mg tablet 12.5 mg DAILY 06/02/20 04/12/22 History rosuvastatin 40 mg tablet (Crestor) 40 mg QAM 06/02/20 04/12/22 History aspirin 81 mg chewable tablet 81 mg PO DAILY 04/12/22 04/12/22 History Current Medications: Active Medications Sodium Chloride (Normal Saline Iv) 500 mls @ 100 mls/hr IV CONT .Q5H LOCO Sedation/Anesthesia: No previous sedation/anesthesia problems (including family history). [facility] Past Medical History Medical History (Updated 06/15/20 @ 06:56 by Ramone Doss MD) Aortic valve insufficiency mild Arthritis CAD (coronary artery disease) H/O ETOH abuse 30 years ago HLD (hyperlipidemia) HTN (hypertension) Myocardial infarct DINA (obstructive sleep apnea) possible - not officially diagnosed Surgical History Surgical History Hx of CABG 2018 x 3 Family History Family History Mother Cerebrovascular accident Father Family history of lung cancer Sibling Acute myocardial infarction Other Family history of cardiovascular disease Hypertension Social History Social History Smoking status: Never smoker Alcohol intake: former Alcohol use details: STATES STOPPED DRINKING 30+ YRS AGO Substance use: never Substance use type: does not use Living arrangements: with family Gender identity (if verbalized by the patient): Male Sexual Orientation (if Verbalized by the Patient): Straight or Heterosexual Spiritual care concerns: No Mod Sed Physical Exam Physical Exam Pre Procedural Exam: Normal: Appearance, Neck, Throat, Airway, Lungs, Heart Rate, Heart Rhythm, Neuro Exam and Extremities and Variation: Heart Size ( PMI nondisplaced) Hours since solid foods: 12 Hours since liquid intake: 12 Mallampati Classification: class II Internal Medicine - PN: Obj Da Vital Signs Vital Signs: Vital Signs - 24 hr 04/15/22 07:15 Temperature 36.5 C Pulse Rate 54 L Respiratory Rate 16 Blood Pressure 162/80 H Pulse Oximetry 98 Oxygen Delivery Room Air Meds/Results Medications: Active Medications Generic Name Dose Route Start Last Admin Trade Name Elvira PRN Reason Stop Dose Admin Sodium Chloride 500 mls @ 100 mls/hr 04/15/22 07:00 Normal Saline Iv IV CONT .Q5H LOCO Labs CBC & Chem 7: 04/15/22 07:13 04/15/22 07:13 Labs: Laboratory Results - last 24 hr 04/15/22 04/15/22 04/15/22 07:13 07:13 07:13 WBC 7.1 RBC 5.09 Hgb 15.7 D Hct 47.3 MCV 92.9 MCH 30.8 MCHC 33.2 RDW 12.4 Plt Count 188 MPV 10.6 H Immature Gran % (Auto) 0.1 Neut % (Auto) 48.7 Lymph % (Auto) 36.6 Reeves % (Auto) 8.3 Eos % (Auto) 5.5 H Baso % (Auto) 0.8 Lymph # (Auto) 2.59 Reeves # (Auto) 0.6 Eos # (Auto) 0.4 H Baso # (Auto) 0.1 Abs Immat Gran (auto) 0.01 Absolute Neuts (auto) 3.4 Absolute Nucleated RBC 0.0 Nucleated RBC % 0.0 PT 13.4 INR 1.1 Sodium 144 Potassium 4.4 Chloride 102 Carbon Dioxide 28 Anion Gap 14 BUN 20 Creatinine 1.10 Estim Creat Clear Calc 63 Estimated GFR > 60 Glucose 89 Calcium 9.3 ASA Classification/Sedation ASA Classification/Sedation ASA Class: II Emergent: No Risks: Risks, benefits and alternatives explained and patient
--- NOTE | 2022-04-15 09:43 | WPDCARDPROC ---
Cardiac Cath Procedure Note Date of procedure:: 04/15/22 Performing physician:: Chacorta Olivares MD Indication:: this is a 71-year-old man with coronary artery disease, previous CABG who has been found to have aneurysmal dilation of his ascending aorta and aortic valve regurgitation. This exam has been requested as part of his preop workup as a candidate for thoracic aortic surgery. Brief clinical history:: As above Procedure Procedure performed:: coronary angiography left ventriculography selective angiography of the radial artery graft to the circumflex selective angiography of the saphenous vein graft to the RPDA non selective angiography of the left internal mammary graft to the LAD Sedation/Medication given:: fentanyl 100 mg Versed 2 mg Access site:: right femoral artery Estimated blood loss:: 30 cc Procedure note:: patient was brought to the cardiac catheterization lab in the postabsorptive state where the right femoral triangle was prepared in normal fashion. Anesthesia was provided with % lidocaine infiltrated locally. Using modified Seldinger technique right common femoral artery was punctured and a 5 Sammarinese vascular sheath was placed. After this I used a 5 Sammarinese FL4 catheter to engage and inject the left coronary artery. Following this a 5 Sammarinese JR4 catheter was used to attempt engagement of the soboba RCA which was unsuccessful. Subsequently the JR4 catheter was used to inject the radial graft to the OM 2 and to non selectively inject the GAYTAN to the LAD. The left subclavian artery has a significant tortuous bend and I was unable to satisfactorily traverse this bend and selectively engaged the left mammary artery. Visualization from this position was felt to be adequate and I did not believe it was necessary to access the left arm to attempt more selective engagement of the left KELLIE. Following this I used a 5 Sammarinese AL1 catheter the selectively engage and inject the soboba right coronary artery. This catheter also fit very well into the radial graft to OM 2 and I injected this graft for a better quality angiogram of that graft. Lastly I engaged the ingram of the saphenous vein graft to the RPDA using a multipurpose A1 catheter. Following this a 5 Sammarinese angled pigtail catheter was used to measure left-sided hemodynamics and to perform a left ventriculogram in the 30 degree LINDSEY projection. The case was then terminated an angiogram was done of the femoral artery through the sheath after which a 6 Sammarinese Angio-Seal device deployed at the puncture site with a good hemostatic result. Procedure was well tolerated and uncomplicated there was nose sign of a groin hematoma upon leaving the director of cardiac cath lab. Findings:: Hemodynamics: central aortic pressure was 178 over 52 left ventricle 180 over 8 end-diastolic pressure 30. No gradient was seen on pullback across the aortic valve. Left ventricle: The LV is mildly enlarged. The infero posterior segment is severely hypodynamic the remainder of the ventricle contracts relatively well the global ejection fraction I would visually estimate to be 45%. the ascending aorta is filled well on these angiograms and is seen to be significantly dilated. The left main coronary artery is patent the left anterior descending is a medium caliber artery giving rise to a proximal diagonal and septal branch. those vessels are free of significant lesions. After those vessels arise the remainder of the LAD is 100% occluded circumflex is a medium caliber artery giving rise to the 1st OM branch. The circumflex and the 1st OM branch have mild irregularities but otherwise free of disease. After the 1st OM branch the remainder of the circumflex is 100% occluded. Right coronary artery is large in caliber with diffuse luminal irregularities in the trunk but no high-grade lesions. There is a 95-99% stenosis in the proximal portion of the RPDA. The RPL branch is free of significant disea
--- NOTE | 2022-04-15 11:54 | SUR.PHASEII ---
Pt up to a chair without difficulty, pt voided in restroom, returned to chair, VSS, NAD noted, no bleeding or hematoma noted.
== END 2022-04-15 12:45 | disposition home or self-care (01) ==
PROVIDERS: PCP Family Medicine; Visit Provider Specialist
PROC: 4A023N7 Measurement of Cardiac Sampling and Pressure, Left Heart, Percutaneous Approach (ICD-10-PCS; CPT 93459; principal; 2022-04-15 08:30)
DX: Z01.810 Encounter for preprocedural cardiovascular examination (principal); I35.1 Nonrheumatic aortic (valve) insufficiency; I25.10 Atherosclerotic heart disease of native coronary artery without angina pectoris; I71.2 Thoracic aortic aneurysm, without rupture; I10 Essential (primary) hypertension; E78.5 Hyperlipidemia, unspecified; I25.2 Old myocardial infarction; G47.33 Obstructive sleep apnea (adult) (pediatric); Z79.82 Long term (current) use of aspirin
CPT/HCPCS: 36415; 80048; 85025; 85610; 93459; C1760; C1769; C1887; C1894; G0269; J1644; J2250; J3010; J7040

== ENCOUNTER 2022-06-08 00:49 | Emergency (ER) | payer MEDICARE, OTHER, SELFPAY ==
[2022-06-08] VITALS (13 sets, daily range): BP systolic 115–165; BP diastolic 79–99; PULSE 87–105; RESP 16–25; TEMP 36.7; O2SAT 97–99
--- NOTE | ~2022-06-08 | XR_ITS ---
EXAMINATION: XR shoulder RT min 2V INDICATION: Right shoulder pain TECHNIQUE: Four views of the right shoulder are submitted. COMPARISON: None FINDINGS: Normal alignment. No fracture. There is moderate osteoarthritis of the glenohumeral and acr omioclavicular joints. Soft tissues are unremarkable. IMPRESSION: 1. Osteoarthritis without acute osseous abnormality. Reviewed, dictated and finalized at location A. ASTER OF PURSES
--- NOTE | 2022-06-08 01:29 | ECG_ITS ---
Measurements Intervals [place] Rate: 86 P: 44 FL: 187 QRS: -42 QRSD: 118 T: -21 QT: 376 QTc: 451 Interpretive Statements SINUS RHYTHM LEFT AXIS DEVIATION INTRAVENTRICULAR CONDUCTION DELAY VOLTAGE CRITERIA FOR LVH POOR R WAVE PROGRESSION, ANTERIOR LEADS MINIMAL Q WAVES- HIGH LATERAL LEADS BORDERLINE ST-T WAVE ABNORMALITY- INFERIOR LEADS BORDERLINE ECG NO PREVIOUS ECG AVAILABLE FOR COMPARISON Electronically Signed On 06-08-2022 6:46:56 INSPECTOR AND MENDER by Dann Li D.O.
--- NOTE | 2022-06-08 01:31 | ED.GENADULT ---
HPI - General Adult General Chief complaint: Unspecified Stated complaint: right shoulder pain, following Open Heart 04/29 Time Seen by Provider: 06/08/22 01:17 History of Present Illness HPI narrative: 71-year-old male presenting to the emergency department for evaluation of right shoulder pain. Patient had open heart surgery on 04/29. Patient states that since the surgery he has had persistent right shoulder pain with decreased range of motion. Patient states he has discussed this with previous physicians. Tonight patient was at rest when he had onset of a strange sensation in his right eye. He states it feels like I am tired but only in my right eye . he tried to further explain it as having something in his eye. Patient denies any change in shoulder pain. Patient denies associated chest pain or shortness of breath. Related Data Home Medications Medication Instructions Recorded Confirmed metoprolol tartrate 25 mg tablet 12.5 mg DAILY 06/02/20 05/15/22 rosuvastatin 40 mg tablet (Crestor) 20 mg QAM 06/02/20 05/16/22 aspirin 81 mg chewable tablet 81 mg PO DAILY 04/12/22 05/15/22 Adult One Daily Multivitamin 1 tablet PO DAILY 05/16/22 05/16/22 Allergies Allergy/AdvReac Type Severity Reaction Status Date / Time No Known Allergies Allergy Verified 04/15/22 07:15 Review of Systems Review of Systems: CONSTITUTIONAL: Denies fever, chills, or sweats. EYES: See HPI ENT: Denies rhinorrhea, congestion, sore throat, or otalgia. CARDIOVASCULAR: Denies chest pain, palpitations, or edema. RESPIRATORY: Denies cough or dyspnea. GASTROINTESTINAL: Denies abdominal pain, nausea, vomiting, or diarrhea. GENITOURINARY: Denies dysuria or hematuria. SKIN: Denies rash or itching. MUSCULOSKELETAL: See HPI NEUROLOGIC: Denies headache, numbness, or weakness. PSYCHIATRIC: Denies anxiety or depression. [facility] Past Medical History Medical History (Updated 06/08/22 @ 03:32 by Orlin Rodarte MD) Aortic valve insufficiency mild Arthritis CAD (coronary artery disease) H/O ETOH abuse 30 years ago HLD (hyperlipidemia) HTN (hypertension) Myocardial infarct DINA (obstructive sleep apnea) possible - not officially diagnosed Thoracic aortic aneurysm Surgical History Surgical History (Updated 05/16/22 @ 10:43 by Benigno Cooper MD) Hx of CABG 2018 x 3 S/P aortic valve repair S/P CABG x 2 Family History Family History Mother Cerebrovascular accident Father Family history of lung cancer Sibling Acute myocardial infarction Other Family history of cardiovascular disease Hypertension Social History Social History Smoking status: Never smoker Alcohol intake: former Alcohol use details: STATES STOPPED DRINKING 30+ YRS AGO Substance use: never Substance use type: does not use Gender identity (if verbalized by the patient): Male Sexual Orientation (if Verbalized by the Patient): Straight or Heterosexual Spiritual care concerns: No Exam Narrative: APPEARANCE: Well appearing, no pain, no distress, well-nourished. HEAD: normocephalic, atraumatic. EYES: PERRLA/EOMI, conjunctivae clear. No fluorescein uptake. No corneal abrasion. NOSE: Normal no drainage EARS:TMS clear with good light reflex. THROAT: Pharynx clear, no exudate. NECK: Supple. No adenopathy, no masses. RESPIRATORY: Airway patent, respirations nonlabored. Clear to auscultation bilaterally, no rales, rhonchi, wheezing. CARDIOVASCULAR: Regular rate and rhythm without murmurs rubs or gallops. ABDOMINAL: Soft, nontender, nondistended, normal bowel sounds MUSCULOSKELETAL: Moves all extremities. Atrophy of some of the muscles of the right shoulder with decreased range of motion. NEURO: Alert. Cranial nerves II through XII intact. Grossly intact SKIN: Warm, dry. Normal Color Course Course Emergency Course: Patient's eye exam showed no evidence of scl
[2022-06-08 02:19] LABS: Basophils Absolute Auto 0.1 K/mm3 (0.0-0.1); Basophils Percent Auto 1.2 % (0.2-1.2); Eosinophils Absolute Auto 0.3 K/mm3 (0-0.3); Eosinophils Percent Auto 5.3 % (0-4.4); Immature Granulocyte Absolute 0.02 K/mm3 (0.00-0.031); Immature Granulocyte Percent A 0.3 % (0-0.5); Lymphocytes Absolute Auto 1.93 K/mm3 (0.9-3.2); Lymphocytes Percent Auto 29.9 % (18.3-44.2); Mean Corpuscular HGB Conc 31.6 g/dl (32-36); Mean Corpuscular Hemoglobin 29.3 pg (26-34); Mean Corpuscular Volume 92.9 fl (80-100); Mean Platelet Volume 9.7 fl (7.4-10.4); Monocytes Absolute Auto 0.5 K/mm3 (0.1-0.6); Monocytes Percent Auto 8.4 % (2.6-8.5); Neutrophils Absolute Auto 3.5 K/mm3 (1.3-6.7); Neutrophils Percent Auto 54.9 % (45.5-73.1); Platelet Count Result 289 k/mm3 (150-375); Red Blood Count 4.09 M/mm3 (4.6-6.20); Red Cell Distribution Width 14.3 % (11.5-14.5); White Blood Count 6.5 K/mm3 (4.5-10.0)
[2022-06-08 02:31] LABS: Alanine Aminotransferase 19 U/L (6-50); Albumin Level 4.1 g/dL (3.5-5.1); Alkaline Phosphatase 79 U/L (38-126); Anion Gap 10 mmol/L (8-16); Aspartate Amino Transferase 26 U/L (17-59); Bilirubin,Total 0.3 mg/dL (0.2-1.3); Blood Urea Nitrogen 23 mg/dL (9-20); Carbon Dioxide 28 mmol/L (22-30); Chloride 103 mmol/L (98-107); Estimated CRCL calculation 63 ml/min; Estimated Glomerular Filt Rate > 60; Glucose 119 mg/dL (65-110); Potassium 4.1 mmol/L (3.4-5.0); Sodium 141 mmol/L (137-145)
== END 2022-06-08 04:16 | disposition home or self-care (01) ==
PROVIDERS: Emergency Provider Emergency Medicine; PCP Family Medicine
DX: M25.511 Pain in right shoulder (principal); H57.11 Ocular pain, right eye; E78.5 Hyperlipidemia, unspecified; I10 Essential (primary) hypertension; I25.10 Atherosclerotic heart disease of native coronary artery without angina pectoris; I25.2 Old myocardial infarction; Z98.890 Other specified postprocedural states; Z95.1 Presence of aortocoronary bypass graft
CPT/HCPCS: 36415; 73030; 80053; 85025; 93005; 99283

== ENCOUNTER → 2022-06-24 13:10 | Outpatient (CLI) | payer MEDICARE, OTHER, SELFPAY ==
--- NOTE | ~2022-06-24 | DEXA_ITS ---
Bone Density Report Name: SHEBA SOLIS Age: 71 Sex: Male Ethnicity: White Date of : 1950 Indication: screening for osteoporosis; prior fracture; cancer; Referring Provider: CATALINA FLYNN Study: Bone densitometry was performed. Exam Date: June 24, 2022 Accession number: [id number] Bone Density: Region BMD T-score Z-score Classification AP Spine (L1-L4) 1.268 1.6 2.6 Normal Femoral Neck (Left) 0.732 -1.5 -0.2 Osteopenia Total Hip (Left) 0.904 -0.9 -0.1 Normal Femoral Neck (Right) 0.803 -0.9 0.3 Normal Total Hip (Right) 0.856 -1.2 -0.4 Osteopenia Total Hip Mean 0.880 -1.1 -0.3 Osteopenia World Health Organization criteria for BMD impression classify patients as: Normal (T-score at or above -1.0), Osteopenia (T-score between -1.0 and -2.5), or Osteoporosis (T-score at or below -2.5). 10-year Fracture Risk: FRAX not reported because: Treated for osteoporosis Clinical Information Provided by Patient: Has had a low trauma fracture Is being treated for osteoporosis Has used the following medications: HRT (i.e. estrogen/hormone therapy), Vitamin D, Calcium, MTV, high risk meds/hormones for prostate cancer Has the following medical conditions: Cancer, prostate cancer 2019 and 2021 Patient maximum height was 74 No regular weight bearing exercise Drinks caffeinated beverages Impression: The patient has low bone mass, based on the Left Femoral Neck T-score. The patient has risk factors, including: previous fracture. Discussion: It is important to ask patients whether they are taking their medications and to encourage continued and appropriate compliance with their osteoporosis therapies to reduce fracture risk. It is also important to review their risk factors and encourage appropriate calcium and vitamin D intakes, exercise, fall prevention and other lifestyle measures. Follow-Up: Consider repeating this study in 2 years to reassess this patient's status, or sooner if there is some new clinical indication. Reported by: [facility] on 06/24/2022 2:05:00 PM. Reviewed, dictated and finalized at location ATo [facility]
== END ==
PROVIDERS: PCP Family Medicine; Visit Provider Nurse Practitioner Adult Health
DX: M85.852 Other specified disorders of bone density and structure, left thigh (principal); M85.851 Other specified disorders of bone density and structure, right thigh; Z79.818 Long term (current) use of other agents affecting estrogen receptors and estrogen levels
CPT/HCPCS: 77080

== ENCOUNTER 2022-11-07 15:11 | Emergency (ER) | payer MEDICARE, OTHER, SELFPAY ==
--- NOTE | ~2022-11-07 | XR_ITS ---
EXAMINATION: XR thoracic spine 3V DATE: 11/07/2022 16:05 INDICATION: Back pain. Fall. TECHNIQUE: 3 views of thoracic spine on 5 radiographs were obtained. COMPARISON: Thoracic spine radiographs 12/12/2009 FINDINGS: There is 6 degrees dextrocurvature of thoracic spine. There is mild chronic anterior wedgin g of multiple vertebral bodies. There is mildly decreased disc height at multiple levels in the mid t horacic spine. There are endplate osteophytes at all levels. Median sternotomy wires and mediastinal surgical clips are seen, likely from prior coronary artery bypass grafting. IMPRESSION: 1. Mild thoracic spondylosis. Reviewed, dictated and finalized at location A.
[2022-11-07 15:18] VITALS: BP 141/76; PULSE 74; RESP 16; TEMP 36.3; O2SAT 100
--- NOTE | 2022-11-07 16:11 | ED.BACK ---
HPI - Back Pain/Injury General Chief Complaint: Back Pain/Injury Stated Complaint: back pain Time Seen by Provider: 11/07/22 15:34 Source: patient Mode of arrival: ambulatory Limitations: no limitations History of Present Illness HPI Narrative: Patient is 71-year-old male that presents with mid upper back pain after falling in the grass. States location is where he just had a metastatic cancer tumor. Denies any numbness tingling to arms denies any shortness of breath denies any chest pain. Reports pain is along spine and in the muscles next to spine between shoulder blades. Related Data Home Medications Medication Instructions Recorded Confirmed metoprolol tartrate 25 mg tablet 12.5 mg DAILY 06/02/20 06/12/22 rosuvastatin 40 mg tablet (Crestor) 20 mg QAM 06/02/20 06/12/22 aspirin 81 mg chewable tablet 81 mg PO DAILY 04/12/22 06/12/22 enzalutamide 80 mg tablet (Xtandi) 80 mg PO DAILY 06/12/22 06/12/22 ibuprofen 200 mg capsule 200 mg PO Q6H PRN 06/12/22 06/12/22 multivitamin 1 tablet PO DAILY 06/12/22 06/12/22 Allergies Allergy/AdvReac Type Severity Reaction Status Date / Time No Known Allergies Allergy Verified 06/12/22 08:28 Review of Systems Review of Systems: All systems reviewed & are unremarkable except as noted in HPI and below Constitutional: Constitutional: Denies body ache(s), Denies fever(s), Denies headache(s), Denies malaise and Denies weakness Eyes: Eyes: Denies loss of vision ENT: Denies otalgia, Denies headache(s), Denies nasal discharge, Denies sinus pain and Denies sore throat Cardiovascular: Cardiovascular: Denies chest pain, Denies irregular heart rhythm and Denies dyspnea Respiratory: Respiratory: Denies dyspnea Gastrointestinal: Gastrointestinal: Denies abdominal pain, Denies melena, Denies hematochezia, Denies diarrhea, Denies nausea and Denies vomiting Musculoskeletal: Musculoskeletal: Reports back pain, Denies myalgias and Denies arthralgias Integumentary/Breasts: Skin/Breast: Denies pruritus and Denies rash Neurologic: Denies headache(s), Denies loss of vision and Denies weakness Psychiatric: Psychiatric: Reports no additional psychiatric complaints PMFSH Past Medical History Medical History Aortic valve insufficiency mild Arthritis CAD (coronary artery disease) H/O ETOH abuse 30 years ago HLD (hyperlipidemia) HTN (hypertension) Myocardial infarct DINA (obstructive sleep apnea) possible - not officially diagnosed Thoracic aortic aneurysm Surgical History Surgical History Hx of CABG 2018 x 3 S/P aortic valve repair S/P CABG x 2 Family History Family History Mother Cerebrovascular accident Hypertension Heart disease Father Family history of lung cancer Cancer Sibling Acute myocardial infarction Cancer Heart disease Other Family history of cardiovascular disease Social History Social History Smoking status: Never smoker Alcohol intake: former Alcohol use details: STATES STOPPED DRINKING 30+ YRS AGO Substance use: never Substance use type: does not use Living arrangements: with family Occupation/Education: retired Gender identity (if verbalized by the patient): Male Sexual Orientation (if Verbalized by the Patient): Straight or Heterosexual Spiritual care concerns: No Comments At time of signature, agree with nursing past medical, surgical, social and family history. There is no relevant family history pertinent to the presenting complaint. Exam Const: General: cooperative, healthy appearing, comfortable, no acute distress and well nourished Nutritional Appearance: well nourished Orientation/consciousness: patient oriented x3 Limitations: no limitations HENMT: Head: normal to inspection, normoc
== END 2022-11-07 16:34 | disposition home or self-care (01) ==
PROVIDERS: Emergency Provider Nurse Practitioner Family; PCP Family Medicine
DX: M54.6 Pain in thoracic spine (principal); C61 Malignant neoplasm of prostate; C79.51 Secondary malignant neoplasm of bone; M19.90 Unspecified osteoarthritis, unspecified site; I25.10 Atherosclerotic heart disease of native coronary artery without angina pectoris; E78.5 Hyperlipidemia, unspecified; I10 Essential (primary) hypertension; I25.2 Old myocardial infarction; Z95.1 Presence of aortocoronary bypass graft
CPT/HCPCS: 72072; 99213; G0463

== ENCOUNTER 2024-01-14 08:32 | Outpatient (CLI) | payer MEDICARE, OTHER, SELFPAY ==
--- NOTE | ~2024-01-14 | US_ITS ---
EXAMINATION: US aorta DATE: 01/14/2024 09:17 CDT INDICATION: TECHNIQUE: Grayscale, color Doppler, and pulsed Doppler images of the aorta and common iliac arteries were obtained. COMPARISON: None. FINDINGS: The proximal aorta measures 3.3 cm greatest sagittal dimension. The mid aorta measures 2.4 cm greates t sagittal dimension. The distal aorta measures 2.7 cm greatest sagittal dimension. The right common internal iliac artery measures 2 cm. The left common iliac artery measures 1.4 cm. IMPRESSION: 1. Mild fusiform aneurysmal dilation of the proximal abdominal aorta measuring 3.3 cm. Reviewed, dictated and finalized at location B.
== END 2024-01-14 08:33 | disposition home or self-care (01) ==
PROVIDERS: PCP Family Medicine; Visit Provider Family Medicine
DX: I71.40 Abdominal aortic aneurysm, without rupture, unspecified (principal)
CPT/HCPCS: 76775

== ENCOUNTER 2024-05-30 18:01 | Emergency (ER) | payer MEDICARE, OTHER, SELFPAY ==
--- NOTE | ~2024-05-30 | CT_ITS ---
EXAMINATION: CT lumbar spine wo con DATE: 05/30/2024 19:35 INDICATION: Lumbar back pain TECHNIQUE: Computed tomography (CT) of the lumbar spine was performed without intravenous contrast. T he mA was adjusted according to patient size. Iterative reconstruction technique was employed. Exam d ose: 1337.36 mGy-cm total exam DLP. Lumbar spine COMPARISON: 12/12/2009 lumbar spine FINDINGS: Normal alignment of the lumbar spine. No fracture or bone destruction, spondylolysis or spo ndylolisthesis is detected. Multilevel degenerative disc disease, moderately severe L4-5 and L5-S1. No significant bulging or herniated discs are narrowed with impingement is identified. No evidence of primary spinal stenosis. IMPRESSION: Multi-level degenerative disc disease Reviewed, dictated and finalized at Location [facility]. Reviewed, dictated and finalized at location A. [employer]
[2024-05-30 18:05] VITALS: BP 195/80; PULSE 61; RESP 16; TEMP 37.2; O2SAT 98
--- NOTE | 2024-05-30 19:14 | ED.BACK ---
HPI - Back Pain/Injury General Chief Complaint: Back Pain/Injury Stated Complaint: back pain History of Present Illness HPI Narrative: 73-year-old male history of hypertension, hyperlipidemia, 3 vessel CABG approximately 8 years ago, 2 the slow CABG approximately 2 years ago, diagnosis of prostate cancer 7 years ago, s/p radiation for abdominal lymphadenopathy and T5 metastases presumed to be secondary to prostate cancer presents to the emergency department for low back pain for 2 days. Patient presents via EMS from home. States he has had atraumatic lower back pain for 2 days it seems to be towards the middle and right side of his low back. He states it is worse with certain positions and better with certain positions. He describes it as a muscle spasm. Denies saddle anesthesia, bowel or bladder incontinence urinary tension, leg weakness, numbness or tingling, fever. He received fentanyl en route with minimal improvement of back pain. Related Data Home Medications Medication Instructions Recorded Confirmed metoprolol tartrate 25 mg tablet 12.5 mg DAILY 06/02/20 12/29/23 rosuvastatin 40 mg tablet (Crestor) 20 mg QAM 06/02/20 12/29/23 aspirin 81 mg chewable tablet 81 mg PO DAILY 04/12/22 12/29/23 enzalutamide 80 mg tablet (Xtandi) 80 mg PO DAILY 06/12/22 12/29/23 ibuprofen 200 mg capsule 200 mg PO Q6H PRN 06/12/22 12/29/23 multivitamin 1 tablet PO DAILY 06/12/22 12/29/23 alendronate 10 mg tablet 10 mg PO DAILY 12/29/23 12/29/23 Allergies Allergy/AdvReac Type Severity Reaction Status Date / Time No Known Allergies Allergy Verified 12/29/23 14:08 Review of Systems Review of Systems: All systems reviewed & are unremarkable except as noted in HPI and below PMFSH Past Medical History Medical History Abdominal aortic aneurysm Aortic valve insufficiency mild Arthritis Atherosclerosis of [place] coronary artery of [place] heart without angina pectoris CAD (coronary artery disease) Essential (primary) hypertension H/O ETOH abuse 30 years ago Mixed hyperlipidemia Myocardial infarct DINA (obstructive sleep apnea) possible - not officially diagnosed Osteoporosis Presence of other vascular implants and grafts Secondary malignant neoplasm of bone Thoracic aortic aneurysm Surgical History Surgical History Hx of CABG 2018 x 3 S/P aortic valve repair S/P CABG x 2 Family History Family History Mother Cerebrovascular accident Hypertension Heart disease Father Family history of lung cancer Cancer Sibling Acute myocardial infarction Cancer Heart disease Other Family history of cardiovascular disease Social History Social History Smoking status: Never smoker Alcohol intake: former Alcohol use details: STATES STOPPED DRINKING 30+ YRS AGO Substance use: never Substance use type: does not use Living arrangements: with family Occupation/Education: retired Gender identity (if verbalized by the patient): Male Sexual Orientation (if Verbalized by the Patient): Straight or Heterosexual Spiritual care concerns: No Exam Narrative: GENERAL: Well-appearing, well-nourished, and in no acute distress. HEAD: Normocephalic, atraumatic. EYES: PERRLA and EOMI. ENT: Nares clear, no rhinorrhea or epistaxis. Mucous membranes moist. NECK: Supple. BACK: Tenderness to the lumbar spine with right paraspinous tenderness, no crepitus, step-offs or deformities. No overlying skin changes. CHEST: Clear to auscultation. No respiratory distress. HEART: Regular rate and rhythm. No murmur heard. Normal peripheral pulses. ABDOMEN: Soft, nontender, nondistended, normal active bowel sounds. EXTREMITIES: Normal range of motion. No edema. SKIN: Warm, dry, no rash. NEURO: No focal deficits. Alert and oriented x3 . BLE 5/5. Sensation intact throughout. No saddle anesthesia. Course Vital Signs Vital signs: Vital Signs Temperature 98.9 F 05/30/24 18:05 Pulse Rate 61 05/30/24 18:05 Respiratory Rate 16 05/30/24 18:05 Blood Pressure 195/80 H 05/30/24 18:05 Pulse Oximetry 98 05/30/24 18:05 Oxygen Delivery Room Air 05/30/24 18:05 Temperature 98.9 F 05/30/24 18:05 Pulse Rate 60 05/30/24 21:39 Respiratory Rate 18 05/30/24 21:39 Blood Pressure 176/75 H 05/30/24 21:39 Pulse Oximetry 98 05/30/24 21:39 Oxygen Delivery Room Air 05/30/24 18:05 MDM - Back Pain/Injury MDM Narrative Medical decision making narrative: 73-year-old male history of CAD, CABG, metastatic prostate cancer presents to the emergency department for atraumatic low back pain for 2 days. Vitals with hypertension of 195/80. He is afebrile nontoxic appearing. Exam is significant for tenderness to the lumbar spine and right paraspinous muscles. patient is neurovascularly intact. Urinalysis is unremarkable. CT lumbar spine shows multilevel degenerative disc disease, no acute fracture bone destruction. Patient was updated on workup. He received Flexeril and lidocaine patch with minimal improvement. He then received Kinsman with improvement. Feel he is safe to be discharged home. He is ambulatory in the ED. during patient states blood pressure did increase to 225 systolic. This was after he attempted to ambulate and was in pain. After pain control his blood pressure had improved to 170 6/75. He is prescribed metoprolol 12.5 mg which he has been taking as prescribed. He denies chest pain, shortness of breath, vision changes. I suspect his elevation of blood pressure secondary to pain. Will send Flexeril, lidocaine patches and hydrocodone to the pharmacy. Encouraged close follow-up with PCP. Strict ED return precautions discussed. He is agreeable with the plan verbalized understanding. Discharged in stable condition. Lab Data Labs: Lab Results 05/30/24 Range/Units 20:14 Urine Color Yellow (Yellow) Urine Appearance Clear (Clear) Urine pH 7.0 (5.0-9.0) Ur Specific [place] 1.022 (1.001-1.035) Urine Protein Trace (Negative) mg/dL Urine Glucose (UA) Negative (Negative) mg/dL Urine Ketones Negative (Negative) mg/dL Ur Blood (Man) Negative (Negative) Urine Nitrate Negative (Negative) Urine Bilirubin Negative (Negative) Urine Urobilinogen 1.0 (<2.0) mg/dL Leukocyte Esterase Rfl Negative (Negative) SUKHI/UL Urine RBC 0-2 (0-2) /hpf Urine WBC 0-5 (0-3) /hpf Ur Squamous Epith Cells None seen (Few) /hpf Urine Bacteria None seen /hpf Urine Casts 0-2 Discharge Plan Discharge Clinical Impression: Low back pain Qualifiers: Chronicity: acute Back pain laterality: midline Sciatica presence: without sciatica Qualified Code(s): M54.50 - Low back pain, unspecified Patient Disposition: Home, Self-Care Condition: Stable Instructions: Antibiotic Form, Acute Low Back Pain (ED), Lower Back Exercises (ED) Additional Instructions: Your evaluated in the emergency department for low back pain. Her CT shows degenerative disc disease. There is no broken bones or evidence of metastatic cancer. Please take medications as directed as needed and follow up with her primary care provider. Return to the emergency department if you develop significantly worsening pain, numbness in your groin, use control her bowel or bladder, fever, or other concerning symptoms. Prescriptions: New cyclobenzaprine 5 mg tablet 5 mg PO TID PRN (Reason: muscle spasm) Qty: 14 0RF hydrocodone-acetaminophen 5-325 mg tablet 1 tablet PO Q8H PRN (Reason: pain) Qty: 14 0RF lidocaine 5 % adhesive patch,medicated 1 patch topical DAILY Qty: 15 0RF Rx Instructions: leave on most painful area for up to 12 hrs. do not use more than 1 patch in a 24-hour period. No Action ibuprofen 200 mg capsule 200 mg PO Q6H PRN multivitamin Tablet 1 tablet PO DAILY Xtandi 80 mg tablet 80 mg PO DAILY alendronate 10 mg tablet 10 mg PO DAILY rosuvastatin [Crestor] 40 mg tablet 20 mg QAM metoprolol tartrate 25 mg tablet 12.5 mg DAILY aspirin 81 mg Tablet,Chewable 81 mg PO DAILY Follow-up/Referrals: Manpreet Hicks MD [Primary Care Provider] -
[2024-05-30] MEDS: LIDOCAINE 5% PATCH 1 PATCH TRANSDERM (19:15)
[2024-05-30] MEDS: CYCLOBENZAPRINE HCL 10 MG TABLET PO (19:19)
[2024-05-30 20:25] LABS: Add Urine Microscopic? YES; Appearance Urine Clear (Clear); Bacteria Urine None Seen /hpf; Bilirubin Urine Negative (Negative); Blood Urine Negative (Negative); Color Urine Yellow (Yellow); Glucose Urine UA Negative (Negative); Ketones Urine Negative (Negative); Leukocyte Esterase Ur Negative LEU/UL (Negative); Nitrate Urine Negative (Negative); Non Pathogenic Casts 0-2; Protein Urine Trace mg/dL (Negative); RBC Urine 0-2 /hpf (0-2); Specific Grav Ur 1.022 (1.001-1.035); Squamous Epithelial Cell Urine None Seen /hpf (Few); WBC Urine 0-5 /hpf (0-3)
[2024-05-30] MEDS: HYDROcodone/acetaminophen (*CRX) 5-325 MG TABLET 1 TAB PO (21:07)
[2024-05-30 21:08] VITALS: BP 225/78; PULSE 62; RESP 18; O2SAT 100
[2024-05-30 21:39] VITALS: BP 176/75; PULSE 60; RESP 18; O2SAT 98
--- NOTE | 2024-05-30 21:39 | PC.NURSE ---
Rn got pt up and walking to see how he feels per PAs orders. Pt states he feels better and is walking smoother than before. SUREKHA Curtis notified.
== END 2024-05-30 22:02 | disposition home or self-care (01) ==
PROVIDERS: Emergency Provider Physician Assistant; PCP Family Medicine
DX: M54.50 Low back pain, unspecified (principal); I10 Essential (primary) hypertension; I35.1 Nonrheumatic aortic (valve) insufficiency; I25.10 Atherosclerotic heart disease of native coronary artery without angina pectoris; I25.2 Old myocardial infarction; E78.2 Mixed hyperlipidemia; C61 Malignant neoplasm of prostate; C77.2 Secondary and unspecified malignant neoplasm of intra-abdominal lymph nodes; C79.51 Secondary malignant neoplasm of bone; M19.90 Unspecified osteoarthritis, unspecified site; M81.0 Age-related osteoporosis without current pathological fracture; Z95.1 Presence of aortocoronary bypass graft; Z92.3 Personal history of irradiation; Z79.82 Long term (current) use of aspirin; Z79.899 Other long term (current) drug therapy
CPT/HCPCS: 72131; 81001; 99284; A9270

== ENCOUNTER 2024-08-17 10:12 | Outpatient (CLI) | payer MEDICARE, OTHER, SELFPAY ==
--- OUTSIDE RECORDS SUMMARY | 2024-08-19 17:13 | XMS_ITS | Continuity of Care Document ---
Author Name [facility] Organization [facility] Care Team Providers Care Detail Technician Name Role Phone [facility] Unavailable Unavailable Problems Combined list of problems from Department of Defense and Veterans Affairs facilities. It does not include entries that were removed or entered in error. Problem Status Onset Date Problem Type Date of Resolution Comme nts Source coronary artery disease Active Condition DoD Medications Combined list of outpatient medications from Department of Defense and Veterans Affairs facilities.Medications provided include 1) outpatient medications from the last 15 months, and 2) patient-reported medications. Medication Details Route Status Patient Instructions Prescription Expires Prescription Number Last Dispense Date Ordering Provider Order Date Order Qty Source alendronate (U/D) 10 MG ORAL TAB Take on empty stomach. Take only with water.Ta ke with water first thing in AM. Stay up 30 min. Active 09/29/2024 [id number] 2023 90 [facility] Satish DUEÑAS ([facility]) alendronate 10 mg tablet 10 mg, Oral, Daily, # 90 EA, 1 total refill(s ), Hard Stop Oral (given by mouth) Ordered 05/18/2025 90.0 Ambul at ory Pharmac y alendronate 10 mg tablet 10 mg, Oral, Daily, # 90 EA, 1 total refill(s ), Hard Stop Oral (given by mouth) Discont inued 05/20/2024 90.0 Ambulat ory Pharmac y alendronate 70 mg tablet See Instruct trevor, # 4 EA, 10 total refill(s ), Acute Complet ed 06/26/2023 4.0 Ambulat ory Pharmac y clobetasol 0.05% ointment [60g] See Instruct trevor, # 60 g, 1 total refill(s ), Hard Stop Ordered 08/16/2025 60.0 Ambul at ory Pharmac y cyclobenzap rine 5 mg tablet 5 mg, Oral, TID, # 14 EA, 0 total refill(s ), Hard Stop Oral (given by mouth) Complet ed 06/05/2024 14.0 Ambulat ory Pharmac y furosemide 20 mg tablet 20 mg, Oral, Daily, # 30 EA, 1 total refill(s ), Hard Stop Oral (given by mouth) Ordered 04/02/2025 30.0 Ambul at ory Pharmac y HYDROcodone -acetaminop hen 5 mg-325 mg tablet = 1 tab(s), Oral, every 8 hr, # 14 EA, 0 total refill(s ), Hard Stop Oral (given by mouth) Complet ed 06/05/2024 14.0 Ambulat ory Pharmac y isosorbide mononitrate 30 mg oral tablet, extended release TAKE ONE TABLET DAILY, # 90 EA, 3 total refill(s ), Acute Complet ed 01/16/2023 90.0 Ambulat ory Pharmac y lidocaine 5% patch See Instruct ions, # 15 EA, 0 total refill(s ), Hard Stop Complet ed 06/15/2024 15.0 Ambulat ory Pharmac y Metoprolol Tartrate (Lopressor) Tablet 25 mg Oral Be careful if taking OTCs.Ge e with food/mil k.Take or use exactly as directed .May impair driving. May cause drowsine ss/dizzi ness. 06/16/2024 [id number] 3 [address] [place] [address] Satish DUEÑAS ([facility]) metoprolol tartrate 25 mg tablet See Instruct ions, # 45 EA, 2 total refill(s ), Hard Stop Complet ed 06/16/2024 45.0 Ambulat ory Pharmac y mupirocin 2% ointment [22g] See Instruct ions, # 44 g, 2 total refill(s ), Hard Stop Ordered 08/16/2025 44.0 Ambul at ory Pharmac y rosuvastati n (U/D) 40 MG ORAL TAB Do not take with milk, antacids , or iron.Ge e or use exactly as directed .Do not take if . 06/16/2024 [id number] 3 [address] [place] [address] Satish DUEÑAS [facility]) rosuvastati n 40 mg tablet 40 mg, Oral, Daily, # 90 EA, 3 total refill(s ), Hard Stop Oral (given by mouth) Ordered 05/18/2025 90.0 Ambul at ory Pharmac y rosuvastati n 40 mg tablet See Instruct ions, Oral, Daily, # 90 EA, 2 total refill(s ), Hard Stop Oral (given by mouth) Discont inued 05/20/2024 90.0 Ambulat ory Pharmac y rosuvastati n 40 mg tablet See dose instruct ions in comments , # 90 EA, 1 total refill(s ), Acute Complet ed 11/27/2023 90.0 Ambulat ory Pharmac y XTANDI (enzalutami de), 40 MG, TABLET, ORAL, ASTELLAS PHARMA, 120 ea. BOTTLE Cancele d [id number] : 2023 0 Pharmac y Data [employer] t[employer] Service Facilit y XTANDI (enzalutami de), 40 MG, TABLET, ORAL, ASTELLAS PHARMA, 120 ea. BOTTLE Cancele d [id number] : 2023 0 Pharmac y Data Transac tion Service Facilit y XTANDI (enzalutami de), 40 MG, TABLET, ORAL, ASTELLAS PHARMA, 120 ea. BOTTLE Cancele d [id number] : 2023 0 Pharmac y Data Transac tion Service Facilit y XTANDI (enzalutami de), 40 MG, TABLET, ORAL, ASTELLAS PHARMA, 120 ea. BOTTLE Cancele d [id number] : 2023 0 Pharmac y Data Transac tion Service Facilit y XTANDI (enzalutami de), 40 MG, TABLET, ORAL, ASTELLAS PHARMA, 120 ea. BOTTLE Cancele d [id number] : 2022 0 Pharmac y Data Transac tion Service Facilit y Allergies, Adverse Reactions, Alerts Combined list of allergies from Department of Defense and Veterans Affairs facilities. It does not include entries that were removed or entered in error. Substance Category Reaction Severity Reaction type Status Date Reported Comments Source No Known Allergies Drug allergy (disorder) active 09/04/2010 [facility] Satish DUEÑAS ([facility]) Vital Signs Combined list of inpatient and outpatient Vital Signs from Department of Defense and [facility], ranging from 12 months to all on record, depending upon the facility. Vital Sign Value Date Comments Source No data available for this section Ambulatory Pharmacy Encounters Combined list of: 1) Encounters from Department of Veterans Affairs facilities going back up to thelast 18 months. 2) Encounters from the Department of [facility] facilities going back up to 280 months. Location Location Details Encounter Type Encounter Number Reason For Visit Attending Provider ADM Date DC Date Status Disposition Source [address] [place] [address] Satish DUEÑAS ([facility])([employer] ([facility] OUTPATIENT [id number] Pas entered the order GRETEL HARVEY 07/11 Released w/o Limitations [address] [place] [address] Satish HOLLOWAYB ([facility])([place] ([facility])) Procedures Combined list of: 1) Procedures from Department of Veterans [facility] facilities going back up to thelast 18 months, not all [place] non-surgical procedures are included; 2) All procedures from the Department of [facility] facilities. Procedure Procedure Type Code Date Perfomer Comments Sourc e No data available for this section Ambulatory Pharmacy ELECTROCARDIOGRAM, ROUTINE ECG WITH AT LEAST 12 LEADS; WITH INTERPRETATION AND REPORT 11/14/2004 [facility] ELECTROCARDIOGRAM, ROUTINE ECG WITH AT LEAST 12 LEADS; WITH INTERPRETATION AND REPORT 05/14/2004 [facility] ELECTROCARDIOGRAM, ROUTINE ECG WITH AT LEAST 12 LEADS; INTERPRETATION AND REPORT ONLY 09/22/2002 [facility] Social History Combined list of available smoking, tobacco, and other social history from Department of Defense and [facility] facilities. Social History Type Response Date Comment Sourc e This section is an empty social history section. DoD Assessment and Plan Combined list of future care activities from Department of Defense and Veterans [facility] facilities (e.g., assessment and plan notes, appointments, orders, and referrals). Additional future care activities may be listed in the Plan of Care section. Result Assessment and Plan Date Source Assessment and Plan No data available for this section 08/19/2024 Ambulatory Pharmacy Functional Status Combined list of recent functional and cognitive assessments recorded at Department of Defense and [facility] [place] Functional [place] Measurement (FIM) Scale: 1 = Total Assistance (Subject = 0% +), 2 = Maximal Assistance (Subject = 25% +), 3 = Moderate Assistance (Subject = 50% +), 4 = Minimal Assistance (Subject = 75% +), 5 = Supervision, 6 = Modified [place] (Device), 7 = Complete [place] (Timely, Safely). Assessment Date/Time Source Assessment Type Assessment Skill Assessment Score Assessment Details No data available for this section
--- NOTE | 2024-09-06 11:10 | P.SLEEP_ITS ---
Sleep Study Date of Study: 08/17/24 Ordering Provider: Manpreet Hicks MD Interpreting Physician: Chanell Meraz DO Sleep Study Type: Split Polysomnogram Height: 1.88 m Weight: 111.13 kg Body Mass Index: 31.4 Neck Circumference (inches): 17 [place]: 16 Reason for Sleep Study Daytime hypersomnia Sleep History The patient is a 73-year-old male that had a sleep study ordered by his primary care physician for evaluation of sleep apnea. The patient rarely awakens from sleep short of breath. he denies awakening at night with heartburn, belching or cough. He constantly snores loudly enough that others complain. He occasionally has trouble sleeping when he has a cold. He rarely wakes up gasping for air throughout the night. He frequently has breathing problems at night observed by himself or others. He constantly sweats excessively at night. He rarely has heart palpitations or irregular heartbeats during the night. He occasionally falls asleep during the day and occasionally falls asleep while dri ving. He denies sleep paralysis and cataplexy. He frequently has trouble at school or work due to sleepiness. He occasionally experiences vivid dreamlike scenes upon awakening or falling asleep. He frequently hates going to sleep. He denies having nightmares. He occasionally remembers his dreams. He frequently has thoughts racing through his mind. He rarely feels sad, depressed or anxious. He occasionally notices parts of his body jerk. He rarely kicks during the night. He rarely has crawling and aching feelings in his legs and rarely has leg pain during the night. He rarely grinds his teeth during sleep and denies awakening with morning jaw pain. He frequently is bothered by pain during the day and rarely awakened by pain during the night. He rarely wakes up feeling stiff in the morning. He denies waking up with sore or achy muscles. He occasionally wakes up with pain in the neck, spine or other joints. He goes to bed at 3:00 a.m. on weekdays and at 2:00 a.m. on the weekends. It takes him 20 minutes to fall asleep. He wakes up 3 times throughout the night to take off the blanket in turn on a fan. He is able fall back asleep within 15 minutes. He wakes up at 10:00 a.m. on both weekdays and weekends. He typically gets 7 hours of sleep per night. He will stay in bed for 20 minutes after waking up in the morning. He currently lives with his . He denies consuming any caffeinated beverages within 2 hours of bedtime. He does engage in physical exercise before bedtime. He will read and watch television before falling asleep. He will take naps in afternoon or the evening and they are refreshing. He consumes 2 caffeinated beverages per day. He denies tobacco, alcohol and recreational drug use. [facility] Past Medical History Medical History (Updated 09/07/24 @ 14:19 by Chanell Meraz DO) Atherosclerosis of [place] coronary artery of [place] heart without angina pectoris Osteoporosis Presence of other vascular implants and grafts Secondary malignant neoplasm of bone Mixed hyperlipidemia Essential (primary) hypertension Abdominal aortic aneurysm Thoracic aortic aneurysm H/O ETOH abuse 30 years ago Arthritis DINA (obstructive sleep apnea) Myocardial infarct Aortic valve insufficiency mild CAD (coronary artery disease) Surgical History Surgical History S/P CABG x 2 S/P aortic valve repair Hx of CABG 2018 x 3 Family History Family History Mother Cerebrovascular accident Hypertension Heart disease Father Family history of lung cancer Cancer Sibling Acute myocardial infarction Cancer Heart disease Other Family history of cardiovascular disease Social History Social History Smoking status: Never smoker Alcohol intake: former Alcohol use details: STATES STOPPED DRINKING 30+ YRS AGO Substance use: never Substance use type: does not use Living arrangements: with family Occupation/Education: retired Gender identity (if verbalized by the patient): Male Sexual Orientation (if Verbalized by the Patient): Straight or Heterosexual Spiritual care concerns: No Medications Home Medications ?Medication ?Instructions ?Recorded ?Confirmed ?Type metoprolol tartrate 25 mg tablet 12.5 mg DAILY 06/02/20 12/29/23 History rosuvastatin 40 mg tablet (Crestor) 20 mg QAM 06/02/20 12/29/23 History aspirin 81 mg chewable tablet 81 mg PO DAILY 04/12/22 12/29/23 History enzalutamide 80 mg tablet (Xtandi) 80 mg PO DAILY 06/12/22 12/29/23 History ibuprofen 200 mg capsule 200 mg PO Q6H PRN 06/12/22 12/29/23 History multivitamin 1 tablet PO DAILY 06/12/22 12/29/23 History alendronate 10 mg tablet 10 mg PO DAILY 12/29/23 12/29/23 History cyclobenzaprine 5 mg tablet 5 mg PO TID PRN muscle spasm #14 05/30/24 Rx tabs hydrocodone 5 mg-acetaminophen 325 1 tablet PO Q8H PRN pain #14 tabs 05/30/24 Rx mg tablet lidocaine 5 % topical patch 1 patch topical DAILY #15 ea 05/30/24 Rx Sleep Procedure A full night split study using the [employer] multi-channel system recorded the standard physiologic parameters including EEG, EOG, submentalis EMG, anterior tibialis EMG, EKG, body position, nasal and oral airflow using nasal pressure sensor and thermistor.? Respiratory parameters of chest and abdo shun movements were recorded with Respiratory Inductance Plethysmography belts. Oxygen saturation was recorded by pulse oximetry. Video monitoring was also performed. Sleep stages, periodic limb movements, and EEG arousals were scored in 30 second epochs according to the criteria of the AASM Scoring Manual. The Apnea-Hypopnea Index was calculated using CMS guidelines for definition of hypopnea with 4% O2 desaturations while scoring respiratory events. Sleep Architecture During the diagnostic portion of the study, the total recording time was 276.4 minutes. The total sleep time was 136.5 minutes. Sleep latency was 20.4 minutes.? REM sleep was not achieved during this portion of the study. Sleep Efficiency was 49.4%. The patient had 33 awakenings for an awakening index of 14.5. Wake after sleep onset time was 119.5 minutes. The patient spent 34.0 minutes, 24.9% of total sleep time in Stage N1. The patient spent 81.0 minutes, 59.3% in Stage N2. The patient spent 21.5 minutes, 15.8% in Stage N3. The patient spent 0.0 minutes, 0.0% in Stage REM sleep. At 03:36:16 AM the patient was placed on PAP treatment and was titrated at pressures ranging from 5 cm H20 up to 10/4 cm H20. During the treatment portion of the study, the total recording time was 181.5 minutes.? The total sleep time was 92.0 minutes. Sleep latency was 4.5 minutes. REM sleep was not achieved during this portion of the study. Sleep Efficiency was 50.7%. Wake after Sleep Onset time was 85.0 minutes. The patient spent 34.0 minutes, 37.0% of total sleep time in Stage N1. The patient spent 58.0 minutes, 63.0% in Stage N2. The patient spent 0.0 minutes, 0.0% in Stage N3. The patient spent 0.0 minutes, 0.0% in Stage REM. The patient had Keo Barr Respirations present during the baseline portion of the study. The cycle length is 43.2 seconds. The circulation time is 42.6 seconds. Respiratory Analysis During the diagnostic portion of the study, the patient had 5 hypopneas, 41 obstructive apneas, 18 mixed apneas, and 26 central apneas for an overall Apnea Hypopnea Index of 39.6 events per hour. The REM Apnea Hypopnea Index was 0. The NREM Apnea Hypopnea Index was 39.6. The patient had a Central Apnea Hypopnea Index of 11.4. The patient had Keo Barr Respirations present during the baseline portion of the study. The cycle length is 43.2 seconds. The circulation time is 42.6 seconds. During the treatment portion of the study, the patient had 31 hypopneas, 7 o bstructive apneas, 37 mixed apneas, and 64 central apneas for an overall Apnea Hypopnea Index of 90.7 events per hour. The REM Apnea Hypopnea Index was 0. The NREM Apnea Hypopnea Index was 90.7. The patient had a Central Apnea Hypopnea Index of 41.7. The patient had Keo Barr Respirations present during the titration portion of the study. The cycle length is 47.6 seconds. The circ ulation time is 20.7 seconds. The patient was started on CPAP 5 cm H2O and titrated to CPAP 8 cm H2O with EPR of 2 before switching to BPAP 8/4 cm H2O. The patient was then titrated to BPAP 10/4 cm H2O before ending the study. the patient was able to fall asleep starting on CPAP 5 cm H2O. The patient was unable to achieve REM sleep during the study. The patient developed treatment-emergent central apneas when he was started on PAP Therapy. There was no optimal pressure setting found with CPAP or BPAP. Arousals During the diagnostic portion of the study, there were a total of 104 arousals for an arousal index of 45.7.? There were 67 respiratory arousals for an index of 29.5. There were 9 periodic limb movement arousals for an index of 4.0.? There were 5 isolated limb movement arousals for an index of 2.2. There were 23 spontaneous arousals for an index of 10.1. During the treatment portion of the study, there were a total of 96 arousals for an index of 62.6.? There were 55 respiratory arousals for an index of 35.9. There were 0 periodic limb movement arousals for an index of 0.? There were 3 isolated limb movement arousals for an index of 2.0. There were 38 spontaneous arousals for an index of 24.8. Periodic Limb Movements During the diagnostic portion of the study, the patient had 19 isolated limb movements with an index of 8.4. The patient had 149 periodic limb movements with an index of 65.5, which is elevated (normal < 15). The patient had a total of 168 limb movements with a total limb movement index of 73.8. During the treatment portion of the study, the patient had 7 isolated limb movements with an index of 4.6. The patient had 0 periodic limb movements with an index of 0. The patient had a total of 7 limb movements with a total limb movement index of 4.6. Oximetry Data During the diagnostic portion of the study, the patient had an average oxygen saturation of 94.4% in wake with a minimum oxygen saturation of 90% and a maximum oxygen saturation of 99%. The patient had an average oxygen saturation of 95.4% in sleep with a minimum oxygen saturation of 90.0% and a maximum oxygen saturation of 98.0%. The patient had 73 oxygen desaturations resulting in an Oxygen Desaturation Index of 32.1. The patient spent 0 minutes of total sleep time with an oxygen saturation less than 88%. During the treatment portion of the study, the patient had an average oxygen saturation of 94.6% in wake with a minimum oxygen saturation of 89.0% and a maximum oxygen saturation of 98.0%. The patient had an average oxygen saturation of 94.5% in sleep with a minimum oxygen saturation of 88.0% and a maximum oxygen saturation of 98.0%. The patient had 129 oxygen desaturations resulting in an Oxygen Desaturation Index of 84.1. The patient spent 0.2 minutes, 0.1% of total sleep time with an oxygen saturation less than 88%. Snoring Profile Mild snoring was present intermittently throughout the study. Cardiac Profile The EKG lead showed normal sinus rhythm. No arrhythmias or premature beats were seen. During the diagnostic portion of the study, the average pulse rate was 58.0 bpm. ? The minimum pulse rate was 45.0 bpm. The maximum pulse rate was 74.0 bpm. During the treatment portion of the study, the average pulse rate was 55.7 bpm.? The minimum pulse rate was 49.0 bpm. The maximum pulse rate was 73.0 bpm. EEG Profile No signs of seizure activity seen. Assessment and Plan Assessment and Plan (1) DINA (obstructive sleep apnea): Code(s): G47.33 - Obstructive sleep apnea (adult) (pediatric) Status: Acute Assessment and Plan: In the baseline portion of the study, the patient had an overall AHI of 39.6 with desaturation down to 90%. the patient had a central apnea index of 11.4, which is elevated (normal < 5). The patient had Keo-Barr respirations present during the baseline portion of the study. This is consistent with severe sleep apnea. The patient developed treatment emergent central sleep apnea when he was started on CPAP which persisted despite switching to BPAP shortly after. No optimal pressure setting was found during the study. I recommend that the patient have an ASV Titration if his echocardiogram shows a LV EF of 45% or greater. (2) Keo-Barr respiration: Code(s): R06.3 - Periodic breathing Status: Acute Assessment and Plan: The patient needs to have an echocardiogram performed to evaluate left ventricular function due to the presence of Keo-Barr respirations in the baseline portion of the study. If the left ventricular ejection fraction is 45% or greater, the patient is a candidate for an ASV titration. Data The data obtained during this sleep study is adequate for interpretation. Certification This sleep study has been reviewed by a board certified sleep medicine physician.
[2024-09-07 14:23] VITALS: BMI 31.4
== END 2024-08-18 07:04 | disposition home or self-care (01) ==
LOC: ANHCSM 10:12
PROVIDERS: PCP Family Medicine; Visit Provider Family Medicine
DX: G47.33 Obstructive sleep apnea (adult) (pediatric) (principal)
CPT/HCPCS: 95811

== ENCOUNTER 2025-01-03 14:55 | Outpatient (CLI) | payer MEDICARE, OTHER, SELFPAY ==
--- NOTE | ~2025-01-03 | XR_ITS ---
XR hip LT 2V w AP pelvis Ordering provider: Manpreet Hicks MD History: . M25.552 - Pain in left hip . Comparison: None. FINDINGS: BONES: No acute fracture or dislocation. HIP JOINT SPACES: Bilateral severe hip osteoarthritic changes. SACROILIAC JOINT SPACES/LUMBAR SPINE: The sacroiliac joint spaces are normal. Mild degenerative jackson es of the visualized lower lumbar spine. PUBIC SYMPHYSIS: Normal. SOFT TISSUES: Normal. IMPRESSION: No acute osseous abnormality pelvis and left hip. Bilateral severe hip osteoarthritic changes. Reviewed, dictated and finalized at location A.
== END 2025-01-03 14:56 | disposition home or self-care (01) ==
LOC: MICIMG 14:57
PROVIDERS: PCP Family Medicine; Visit Provider Family Medicine
DX: M16.12 Unilateral primary osteoarthritis, left hip (principal)
CPT/HCPCS: 73502